=== PATIENT | female | born 1960 | race Caucasian/White ===

== ENCOUNTER 2022-05-06 13:21 | Outpatient (CLI) | payer OTHER, SELFPAY ==
[2022-05-06 13:59] LABS: Cholesterol* 193 mg/dL (90-199); HDL Cholesterol* 50 mg/dL (>=50); LDL Cholesterol Calculated 116 mg/dL (<100); Triglycerides* 135 mg/dL (40-149)
== END 2022-05-06 13:22 | disposition home or self-care (01) ==
PROVIDERS: PCP Physician Assistant Medical; Visit Provider Physician Assistant Medical
DX: Z00.00 Encounter for general adult medical examination without abnormal findings (principal); I10 Essential (primary) hypertension; Z13.6 Encounter for screening for cardiovascular disorders
CPT/HCPCS: 80061

== ENCOUNTER 2022-05-08 10:35 | Outpatient (CLI) | payer SELFPAY | END 2022-05-08 10:36 | disposition home or self-care (01) | LOC: FRMREF 05-30 10:43 | PROVIDERS: PCP Physician Assistant Medical; Visit Provider Physician Assistant Medical | DX: Z00.00 Encounter for general adult medical examination without abnormal findings (principal); E66.9 Obesity, unspecified; I10 Essential (primary) hypertension; Z13.9 Encounter for screening, unspecified | CPT/HCPCS: 87624; 88175 ==

== ENCOUNTER 2022-07-03 14:39 | Outpatient (CLI) | payer OTHER, SELFPAY ==
--- NOTE | 2022-07-03 15:00 | CRLHL7_ITS ---
For Patients: As a result of the Century Cures Act, medical imaging exams and procedure reports are released immediately into your electronic medical record. You may view this report before your referring provider. If you have questions, please contact your health care provider. BILATERAL SCREENING MAMMOGRAM WITH COMPUTER-AIDED DETECTION AND TOMOSYNTHESIS TECHNIQUE: CC and MLO views were obtained. These mammographic images have been obtained using full-field digital technique. These mammographic images were interpreted with the benefit of computer-aided detection. Breast Tomosynthesis was used in this interpretation. COMPARISON FILM: 11/02/20, 05/26/19, 02/11/18. FINDINGS: There are scattered areas of fibroglandular density IMPRESSION: There is no radiographic evidence for malignancy. ASSESSMENT: BI-RADS Category 1: Negative RECOMMENDATION: Routine screening mammogram in 1 year. A lay language report of this examination will be provided to the patient. Maximiliano Hallman M.D. Diagnostic Radiologist [email or web address] ANAIS/Dictated by: Maximiliano Hallman MD @ 07/04/2022 8:12:00 AM (Electronically Signed)
== END 2022-07-03 14:40 | disposition home or self-care (01) ==
LOC: MAMMO 14:40
PROVIDERS: PCP Physician Assistant Medical; Visit Provider Physician Assistant Medical
DX: Z12.31 Encounter for screening mammogram for malignant neoplasm of breast (principal)
CPT/HCPCS: 77063; 77067

== ENCOUNTER 2023-08-14 14:25 | Outpatient (CLI) | payer OTHER, SELFPAY | END 2023-08-14 14:26 | disposition home or self-care (01) | LOC: NFLDREF 08-17 09:35 | PROVIDERS: PCP Physician Assistant Medical; Referring Provider Physician Assistant Medical; Visit Provider Physician Assistant Medical | DX: Z01.818 Encounter for other preprocedural examination (principal); I10 Essential (primary) hypertension; E66.9 Obesity, unspecified; Z13.6 Encounter for screening for cardiovascular disorders; Z13.29 Encounter for screening for other suspected endocrine disorder | CPT/HCPCS: 80053; 80061; 84443 ==

== ENCOUNTER 2024-11-28 08:26 | Outpatient (CLI) | payer OTHER, SELFPAY ==
--- NOTE | 2024-11-28 08:45 | CRLHL7_ITS ---
For Patients: As a result of the Century Cures Act, medical imaging exams and procedure reports are released immediately into your electronic medical record. You may view this report before your referring provider. If you have questions, please contact your health care provider. BILATERAL SCREENING MAMMOGRAM WITH COMPUTER-AIDED DETECTION AND TOMOSYNTHESIS TECHNIQUE: CC and MLO views were obtained. These mammographic images have been obtained using full-field digital technique. These mammographic images were interpreted with the benefit of computer-aided detection. Breast Tomosynthesis was used in this interpretation. COMPARISON FILM: 07/03/22, 11/02/20, 05/26/19. FINDINGS: There are scattered areas of fibroglandular density. IMPRESSION: There is no radiographic evidence for malignancy. ASSESSMENT: BI-RADS Category 1: Negative RECOMMENDATION: Routine screening mammogram in 1 year. A lay language report of this examination will be provided to the patient. Maximiliano Hallman M.D. Diagnostic Radiologist [email or web address] SP/Dictated by: Maximiliano Hallman MD @ 12/05/2024 9:29:00 AM (Electronically Signed)
== END 2024-11-28 08:27 | disposition home or self-care (01) ==
LOC: MAMMO 08:27
PROVIDERS: PCP Physician Assistant Medical; Visit Provider Physician Assistant Medical
DX: Z12.31 Encounter for screening mammogram for malignant neoplasm of breast (principal)
CPT/HCPCS: 77063; 77067

== ENCOUNTER 2024-12-05 07:22 | Outpatient (CLI) | payer MEDICARE, SELFPAY ==
[2024-12-07 18:58] LABS: HPV Source Cervical/Vag; HPV, High Risk by TMA Not Detected
[2024-12-20 14:44] LABS: Pap Test Reviewed by Path Done
== END 2024-12-05 07:23 | disposition home or self-care (01) ==
PROVIDERS: PCP Physician Assistant Medical; Visit Provider Physician Assistant Medical
DX: R87.620 Atypical squamous cells of undetermined significance on cytologic smear of vagina (ASC-US) (principal); I10 Essential (primary) hypertension; E66.9 Obesity, unspecified; Z11.51 Encounter for screening for human papillomavirus (HPV)
CPT/HCPCS: 80053; 80061; 84443; 87624; 87625; 88141; 88142

== ENCOUNTER 2024-12-15 14:30 | Outpatient (CLI) | payer MEDICARE, SELFPAY | END 2024-12-15 14:31 | disposition home or self-care (01) | LOC: RAD 14:31 | PROVIDERS: PCP Physician Assistant Medical; Visit Provider Physician Assistant Medical | DX: Z78.0 Asymptomatic menopausal state (principal) | CPT/HCPCS: 77080 ==

== ENCOUNTER 2025-01-27 08:47 | Outpatient (CLI) | payer MEDICARE, SELFPAY ==
--- NOTE | 2025-01-27 09:15 | CRLHL7_ITS ---
For Patients: As a result of the Century Cures Act, medical imaging exams and procedure reports are released immediately into your electronic medical record. You may view this report before your referring provider. If you have questions, please contact your health care provider. INDICATION: Postmenopausal bleeding COMPARISON: none TECHNIQUE: 2D lenz scale and color Doppler images were acquired of the pelvis using a transabdominal and transvaginal approach. FINDINGS: Sonographic images demonstrate a normal size and smooth outer contour of the uterus. Uterus measures 9.4 cm in length by 7.2 cm in AP diameter by 6.6 cm in transverse dimension. Hyperechoic structure within the posterior mid myometrium measures 2.4 x 1.4 x 1.4 cm. The endometrial lining appears thickened and heterogeneous and measures 27 mm in composite thickness. The ovaries are not visualized. There are no suspicious fluid collections within the cul-de-sac. IMPRESSION: Thickened and heterogeneous endometrium measures up to 2.7 cm. Blood products appear to be present within the endometrial canal. Posterior uterine fibroid is present measuring 2.4 cm. Dictated by Maximiliano Hallman MD @ 01/27/2025 10:20:49 AM (Electronically Signed)
== END 2025-01-27 08:48 | disposition home or self-care (01) ==
LOC: US 08:48
PROVIDERS: PCP Physician Assistant Medical; Visit Provider Physician Assistant Medical
DX: N95.0 Postmenopausal bleeding (principal); D25.9 Leiomyoma of uterus, unspecified; R93.89 Abnormal findings on diagnostic imaging of other specified body structures
CPT/HCPCS: 76830; 76856

== ENCOUNTER 2025-03-07 13:52 | Outpatient (CLI) | payer MEDICARE, SELFPAY | END 2025-03-07 13:53 | disposition home or self-care (01) | LOC: NFLDREF 03-10 10:37 | PROVIDERS: PCP Physician Assistant Medical; Referring Provider Physician Assistant Medical; Visit Provider Physician Assistant Medical | DX: E05.90 Thyrotoxicosis, unspecified without thyrotoxic crisis or storm (principal) | CPT/HCPCS: 84443 ==

== ENCOUNTER 2025-03-13 10:15 | Outpatient (CLI) | payer MEDICARE, SELFPAY ==
--- NOTE | 2025-03-13 11:00 | CRLHL7_ITS ---
For Patients: As a result of the Century Cures Act, medical imaging exams and procedure reports are released immediately into your electronic medical record. You may view this report before your referring provider. If you have questions, please contact your health care provider. INDICATION: Malignant neoplasm of endometrium. TECHNIQUE: CT chest, abdomen and pelvis acquired with 139 cc of Isovue 370 IV contrast. COMPARISON: Pelvic ultrasound 01/27/2025. FINDINGS: Chest: Cardiovascular structures: Heart size is normal. Main pulmonary artery is dilated to 3.1 cm, suggesting underlying pulmonary hypertension. Thoracic aorta is normal in caliber. Mediastinum and moris: No pathologic lymphadenopathy. Lungs: No pneumothorax. Central airways are patent. Lungs are clear. Pleura and pericardium: No effusions. Chest wall and axilla: Unremarkable. Abdomen and Pelvis: Liver: Fatty change. No focal lesion. Spleen: Unremarkable. Pancreas: Unremarkable. Gallbladder and bile ducts: No calcified gallstones or biliary ductal dilatation. Kidneys: No urolithiasis, hydronephrosis or suspicious lesion. Adrenal glands: Unremarkable. GI tract: Colonic diverticulosis without evidence of acute diverticulitis. No obstruction or acute inflammatory change. No free air or free fluid. Vascular structures: Unremarkable. Lymph nodes: No pathologic lymphadenopathy. Pelvic Organs: Thickened and heterogeneous appearance of the endometrium with areas of enhancement consistent with known neoplasm. Adnexal regions and bladder as imaged are unremarkable. Bones: Degenerative changes spine and pelvis. No acute or suspicious abnormality. IMPRESSION: No evidence of metastatic disease in the chest, abdomen or pelvis. Dictated by Steve Gonzales MD @ 03/14/2025 3:30:02 PM Please note that all CT scans at this facility use dose modulation, iterative reconstruction, and/or weight-based dosing when appropriate to reduce radiation dose to as low as reasonably achievable. Dictated by: Steve Gonzales MD @ 03/14/2025 15:30:24 (Electronically Signed)
== END 2025-03-13 10:16 | disposition home or self-care (01) ==
LOC: CT 10:17
PROVIDERS: PCP Physician Assistant Medical; Visit Provider Physician Assistant
DX: C54.1 Malignant neoplasm of endometrium (principal)
CPT/HCPCS: 71260; 74177; Q9967

== ENCOUNTER 2025-06-19 16:07 | Outpatient (CLI) | payer MEDICARE, SELFPAY ==
--- NOTE | 2025-06-19 16:45 | CRLHL7_ITS ---
For Patients: As a result of the Century Cures Act, medical imaging exams and procedure reports are released immediately into your electronic medical record. You may view this report before your referring provider. If you have questions, please contact your health care provider. INDICATION: Left thigh posterior knee pain TECHNIQUE: A compression venous ultrasound exam was performed of the left lower extremity using lenz-scale imaging, color Doppler and spectral Doppler analysis. FINDINGS: Sonographic imaging of the left lower extremity demonstrates Extensive thrombus seen in the common femoral vein. No thrombus in the deep femoral vein or greater saphenous vein. Thrombus seen within the femoral vein, popliteal, posterior tibial vein. Peroneal vein suboptimally seen. Thrombus also seen in the left iliac vein. Normal blood flow in the right iliac vein. IVC suboptimally visualized. 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 IVC is suboptimally seen. Results called to Dr. Nath on 06/19/25 at 5:50pm. Dictated by Gayle Buck MD @ 06/19/2025 5:49:05 PM (Electronically Signed)
== END 2025-06-19 16:08 | disposition home or self-care (01) ==
PROVIDERS: PCP Physician Assistant Medical; Visit Provider Nurse Practitioner Family
DX: C54.1 Malignant neoplasm of endometrium (principal); M79.605 Pain in left leg; K76.0 Fatty (change of) liver, not elsewhere classified
CPT/HCPCS: 93971

== ENCOUNTER 2025-06-19 17:18 | Emergency (ER) | payer MEDICARE, SELFPAY ==
--- OUTSIDE RECORDS SUMMARY | 2025-06-19 17:20 | XMS_ITS | Clinical Summary ---
Author Organization [facility] Address [facility] [place] [address] Care Team Providers Care Longitudinal Float Operator Name Role Phone Seven Bernal Primary Care Provider Unavailabl e Allergies No known active allergies Medications lisinopriL 10 mg tablet Take 10 mg by mouth once daily. Active acetaminophen 325 mg tablet Take 325 mg by mouth every 4 hours if needed for Pain. Max acetaminophen dose: 4000mg in 24 hrs. Active oxyCODONE 5 mg immediate release tabletIndicati ons:Post-op pain Take 1 Tablet (5 mg) by mouth every 4 hours if needed for Pain. 10 Tablet 03/23/2025 10:15 AM CDT Active Encounters Date Type Department Care Team Description 03/23/2025 7:32 AM CDT Anesthesia Event 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 [address] [place] [address] Jana Barnett MD robot-assisted total laparoscopic hysterectomy, bilateral salpingo-oophorecto my, bilateral pelvic sentinel lymph node dissection, infracolic omentectomy, pelvic washings, cystoscopy 03/23/2025 5:08 AM CDT - 03/23/2025 12:50 PM CDT Hospital Encounter 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 Gender Identity Not on file Sexual Orientation Not on file Obstetrics History Last Filed Vital Signs Vital Sign Reading Time Taken Comments Blood Pressure 112/67 03/23/2025 12:00 PM CDT Pulse 66 03/23/2025 12:15 PM CDT Temperature 36.5 C (97.7 F) 03/23/2025 12:15 PM CDT Respiratory Rate 12 03/23/2025 12:15 PM CDT Oxygen Saturation 95% 03/23/2025 12:15 PM CDT Inhaled Oxygen Concentration - - Weight 128.4 kg (283 lb) 03/23/2025 6:16 AM CDT Height 165.1 cm (5' 5) 03/23/2025 6:16 AM CDT Body Mass Index 47.09 03/23/2025 6:16 AM CDT Plan of Treatment Health Maintenance Due Date Last Done Comments Tetanus booster 1970 Depression screening for age 12+ 1971 HIV for age 15-65 1974 BMI (ht and wt on same day) for age 18+ 1977 Hepatitis C screening for age 18-79 1977 Colonoscopy through age 75 2004 Lipids for age 45-75 2004 Mammogram for age 45-75 2004 Pneumococcal series for age 50+ (1 of 1 - PCV) 2009 Zoster (shingles) series for age 50+ (1 of 2) 2009 RSV vaccine for adults or (1 - Risk 60-74 years 1-dose series) 2019 DEXA/DXA scan for age 65+ 2024 Pap test for age 21-65 05/08/2025 2, 05/08/2022, 01/22/2017, Additional history exists COVID-19 vaccine series ( season) 2025 09/14/2021, 01/19/2021, 12/29/2020 Influenza Vaccine (#1) 2025 Hepatitis B series for 19+ Aged Out N o longer eligible based on patient's age to complete this topic Procedures Procedure Name Priority Date/Time Associated Diagnosis Comments PATH TISSUE EXAM Today 03/23/2025 8:38 AM CDT CG HER2 GASTRIC Routine 03/23/2025 8:38 AM CDT CYTOGENETICS MALIGNANT TISSUE Routine 03/23/2025 8:38 AM CDT PATH NON MANAGER DOCUMENT CYTOLOGY Today 03/23/2025 8:29 AM CDT ENDOTRACHEAL TUBE Routine 03/23/2025 8:2 0 AM CDT OR IMAGE CAPTURE Routine 03/23/2025 7:25 AM CDT ROBOTIC ASSISTED SALPINGO-OOPHORECTO MY XI Tier 2: within 30 days 03/23/2025 7:00 AM CDT SEROUS ENDOMETRIAL CANCER ROBOTIC ASSISTED LAPAROSCOPIC TOTAL HYSTERECTOMY XI Tier 2: within 30 days 03/23/2025 7:00 AM CDT SEROUS ENDOMETRIAL CANCER GLUCOSE METER Timed 03/23/2025 6:37 AM CDT TYPE & SCREEN Preop 03/23/2025 6:20 AM CDT SCAN-CARDIAC STRIP 03/23/2025 12 :00 AM CDT HPV HIGH RISK Routine 05/08/2022 10:15 AM CDT from Last 3 Months or Most Recently Relevant to Health Maintenance Results * CG HER2 GASTRIC (03/23/2025 8:38 AM CDT) Tissue (Right Pelvic Lymph Node) 03/23/2025 8:38 AM CDT 03/31/2025 1:38 PM CDT us Jana Barnett MD LABORATORY Fin al Result [facility] [address] [place] [address], [place] * CYTOGENETICS MALIGNANT TISSUE STUDIES (03/23/2025 8:38 AM CDT) RFR Endometrial carcinoma 04/04/2025 3:[address] [facility] TEST & RESULT SUMMARY HER2 FISH Endometrial: See pathology report [id number]. See comments. 04/04/2025 3:[address] [facility] _ 04/04/2025 3:07 PM CDT [facility] [place] N[facility] LABORATORY COMMENTS This record is used as an internal laboratory test designed for workflow purposes only. 04/04/2025 3:07 PM CDT [facility] [place] [facility] NTRAL LABORATORY SOURCE UTERUS WITH CERVIX, OVARIES, AND FALLOPIAN TUBES (Paraffin Slides C13 2 uns 1 H&E) [id number] 04/04/2025 3:07 PM CDT [facility] Tissue (Right Pelvic Lymph Node) 03/23/2025 8:38 AM CDT 03/31/2025 1:38 PM CDT us Jana Barnett MD LABORATORY Fin al Result [facility] [address] [place] [address], [place] * PATH TISSUE EXAM (03/23/2025 8:38 AM CDT) Case Report Pathology Report Case: [id number] Authorizing Provider: Jana Barnett Collected: 03/23/2025 0838 MD Mark Ordering Location: [facility] Received: 03/23/[address] [place] [address] Pathologist: Hilda Edwards MD Specimens: A) - Right Pelvic Lymph Node, right pelvic sentinel lymph node B) - Left Pelvic Lymph Node, left pelvic sentinel lymph node C) - Uterus, uterus, cervix, bilateral fallopian tubes, bilateral ovaries D) - Omentum 5:25 PM CDT [facility] Amendment 03/31/2025 - Amendmen t issued to incorporate ancillary HER2 IHC studies. 04/04/2025 - Amendment issued to incorporate ancillary HER2 FISH studies. 5:25 PM CDT [facility] C[facility] LAB[facility] Final Diagnosis A) SENTINEL LYMPH NODE, RIGHT PELVIC, BIOPSY: 1. One lymph node, negative for malignancy (0/1) 2. Cytokeratin AE1/AE3 immunostains are negative for tumor cells B) SENTINEL LYMPH NODE, LEFT PELVIC, BIOPSY: 1. One lymph node, negative for malignancy (0/1) 2. Cytokeratin AE1/AE3 immunostain is negative for tumor cells C) UTERUS WITH CERVIX, OVARIES, AND FALLOPIAN TUBES, TOTAL HYSTERECTOMY WITH BILATERAL SALPINGO-OOPHORECTOMY: 1. Endometrial carcinoma: a. 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 Molecular classification: p53 abnormal c. Maximum tumor size: Approximately 2-3 cm d. Myometrial invasion: Absent e. Lower uterine segment involvement: Absent f. Cervical involvement: Absent g. Uterine serosal involvement: Absent h. Angiolymphatic invasion: Absent i. Margins: Negative 2. Right and left ovaries and fallopian tubes are negative for carcinoma 3. Additional uterine findings: a. Cervical polyp and an endometrial polyp b. Areas of squamous atypia (possibly reactive; negative for high-grade squamous intraepithelial lesion/MACARIO-3) c. Uterine weight: 219 grams 4. See synoptic section below for complete staging details D) OMENTUM, OMENTECTOMY: 1. Adipose tissue 2. Negative for malignancy 5:25 PM CDT [facility] Amendment electronically signed by Hilda Edwards MD on 04/04/2025 at 1725 CDT Amendment electronically signed by Hilda Edwards MD on 03/31/2025 at 1339 CDT at 1256 CDT Comment C) At the time of hysterectomy, a degenerating leiomyoma protrudes into the uterine cavity along the posterior wall. The tubing component of this leiomyoma contains a mass of high-grade serous carcinoma which is approximately 2 to 3 cm in size. In the biopsy ([id number]), the possibility of a small component of clear cell carcinoma was raised; however, this was a focal change and no more of this population remains in the hysterectomy. 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 The molecular classification indicated in this report is based on prior testing, which included DNA mismatch repair enzyme and p53 immunohistochemistry and POLE molecular testing. See prior report [id number] for full details. HER2 COMMENT There are currently no guidelines that have been developed for the reporting of the results of HER2 testing on endometrial cancer. In the absence of such data, guidelines for HER2 positivity are based on modified CAP/ASCO 2007 criteria as proposed at [facility], [facility], 2020. While the results are negative, documentation of specimen fixation in accordance with ASCO/CAP guidelines cannot be verified. Thus, negative results should be interpreted with caution. REFERENCES: Jessi Vera. HER2 Testing in Endometrial Serous Carcinoma: Time for Standardized Pathology Practice to Meet the Clinical Demand. Arch Pathol Lab Med. 2020 1;145(6):687-691. doi: 10.5858/arpa.0645-4995- RA. PMID: [id number]. 5 5:25 PM CDT [facility] Clinical Information History of postmenopausal bleeding with biopsy showing a serous predominant carcinoma ([id number]) 5 5:25 PM CDT [facility] Gross Description A) Received fresh labeled with the patient's name and left pelvic sentinel lymph node, is a 3.4 x 2.6 x 1.2 cm aggregate of focally cauterized fibrofatty tissue. Upon dissection, no definitive enlarged lymph nodes are identified. Specimen is entirely submitted in 2 cassettes. B) Received fresh labeled with the patient's name and right pelvic sentinel lymph node, is a 2.1 x 1.5 x 0.8 cm focally cauterized fibrofatty tissue. Upon dissection, there is an ill-defined 1 x 0.7 cm probable lymph node with focal injected dye. The lymph node is bisected and the entire specimen submitted in 1 cassette. C) Received fresh labeled with the patient's name and uterus, cervix, bilateral fallopian tubes, bilateral ovaries, is a 219 g, 11.5 x 6.7 x 6.3 cm uterus and cervix. Uterine serosa is red-estrada smooth and without adhesions or suspicious nodules. The cervix is 3.7 cm long, ectocervix is 3.4 cm diameter with a patent 0.5 cm diameter external cervical os. The anterior paracervical soft tissue margin is inked blue and the posterior paracervical soft tissue margin is inked black. Ectocervical mucosa is smooth red-estrada and unremarkable. There is a distinct cervical squamocolumnar junction. There is a pedunculated 1.3 x 0.7 x 0.5 cm thin, soft endocervical polyp confined to the mucosa. Protruding into the endometrial cavity is a 5.5 x 3.5 x 2.7 cm polypoid and fungating red-estrada, lenz-brown endometrial tumor involving the posterior uterine wall, with necrotic-appearing, estrada-white fibrous, vaguely whorled, edematous cut surfaces, possibly representing a submucosal degenerating leiomyoma. The overlying mucosa is thickened and ragged. If this represents invasive tumor, there is myometrial invasion to a depth of 1.7 cm in an area where the myometrium is 3.7 cm thick. This is 1.5 cm from the PETRA and 5 cm from the ectocervical margin. Also, there is a separate bilobed fleshy polypoid 2.6 x 1.5 x 1 cm endometrial mass with soft edematous pale-estrada cut surfaces, involving the anterior wall, without evidence of myometrial invasion. This is 2.5 cm from the PETRA. The attached right adnexa includes an intact estrada ovary (2.3 x 1.9 x 1.7 cm) and a 6.5 x 0.8 cm fimbriated fallopian tube. Fallopian tube serosa is smooth purple-estrada and without suspicious nodules, adhesions or tumor implants. On cut surface, the ovarian lenz-estrada parenchyma includes a 0.6 x 0.5 cm corpus albicans and no suspicious nodules. The fallopian tube pinpoint to stellate lumen is lined by unremarkable soft estrada-pink mucosa without lesions. The attached left adnexa includes an intact estrada ovary (2.4 x 1.7 x 1.6 cm) and a 6.8 x 1.1 cm fimbriated fallopian tube. Fallopian tube serosa is smooth maroon-estrada and without suspicious nodules, adhesions or tumor implants. On cut surface, the ovarian red-estrada parenchyma is without discrete lesions. The fallopian tube pinpoint to stellate lumen is lined by unremarkable soft red-estrada mucosa without discrete lesions. Photographs of the specimen are uploaded to the case. Wet Finisher Wool sections are submitted in 28 cassettes: 1. Endocervical polyp, entirely submitted 2. Anterior cervix 3. Posterior cervix 4-5. Anterior endocervix/PETRA 6. Posterior endocervix/PETRA 7-9. 5.5 cm polypoid/fungating tumor, posterior wall, full-thickness sections, sequential inner half to outer half 10-13. 5.5 cm polypoid/fungating tumor, posterior wall, exophytic component 14. 2.6 cm fleshy endometrial polyp, anterior wall, full-thickness 15-16. 2.6 cm fleshy endometrial polyp, remaining 17. Right ovary 18-22. Entire right fimbriated fallopian tube, sequential 23. Left ovary 24-28. Entire left fimbriated fallopian tube, sequential D) Received fresh labeled with the patient's name and omentum, is a 26 x 4.5 x 1.7 cm omentectomy specimen. Upon dissection, and serial cross sectioning, there is finely lobulated soft yellow-pink adipose tissue. No discrete nodules or suspicious infiltrates are identified. Multiple telecommunications sales representative sections are submitted in 8 cassettes. Time and date in formalin: 913 on 03/23/2025 LDW 03/23/2025 5:25 PM [facility] Microscopic Description The final diagnosis is based on microscopic examination of appropriate sections of all specimens. A-B) Per protocol for histologically negative sentinel lymph node evaluation, cytokeratin AE1/AE3 immunostains were performed on blocks A1 and B1. Both cytokeratin AE1/AE3 immunostains are negative. On part c, a P53 stain was performed to characterize the amount of neoplasm (p53 positive) involving certain groups of glands. 5:25 PM [facility] CENTRAL LABORATORY Cytogenetics Summary MATERIALS AND METHODS, AND REFERENCE RANGES: - Adequate number of tumor cells present on re-cut H&E stain from block C13. - 25 invasive tumor cells are scored for HER2 by two technologists and verified by a pathologist. Internal and external controls are within normal limits. - Cold ischemia time cannot be documented. Formalin fixation was not documented. TESTING INFORMATION FOR HER2 GENE AMPLIFICATION BY FLUORESCENCE IN-SITU HYBRIDIZATION (FISH): HER2 analysis by FISH is performed on tissue fixed in 10% neutral buffered formalin. Gene amplification is detected with the commercial PathV[employer]ion dual color HER2/CEP17 DNA Probe Kit (PathVysion Kit) from [employer] using a multiplex probe stain procedure. Guidelines for HER2 over-expression via FISH use modified CAP/ASCO 2007 guidelines as proposed by [facility], 2020. (endometrial) - HER2 amplified: HER2/CEP17 Ratio = 2.0 or greater, OR HER2 signals/cell = 6 or greater - HER2 negative: HER2/CEP17 Ratio <2.0 and <6 HER2 signals/cell DISCLAIMER: Per ASCO/CAP guidelines, these test results are valid for non-decalcified paraffin embedded specimens fixed in 10% neutral buffered formalin between 6 and 72 hours. This test was developed and its performance characteristics determined by [email or web address]. It has not been cleared or approved by the US Food and Drug Administration. The FDA does not require this test to go through premarket FDA review. This test is used for clinical purposes. It should not be regarded as investigational or for research. This laboratory is certified under the Clinical Laboratory Improvement Amendments (CLIA) as qualified to perform high complexity clinical laboratory testing. REFERENCES: Russell Pantoja., Ene Echeverria., Thai Adam., et al., 2018. 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 J. Clin. Oncol. 36, 2780-5042. Asya Bowen. December,, HER2 Immunostaining and FISH in Endometrial Serous Carcinoma. [facility] [place]. 5:25 PM CDT PST [facility]- CENTRAL LABORATORY SYNOPTIC REPORTING ENDOMETRIUM ENDOMETRIUM - All Specimens AJ 8 - Protocol posted: 09/21/2024 SPECIMEN Procedure: Total hysterectomy Procedure: Bilateral salpingo-oophorectomy Procedure: Peritoneal / pelvic washing Specimen Integrity: Intact TUMOR Tumor Size: Greatest microscopic dimension (Centimeters): 2-3 cm Histologic Type: Serous carcinoma Histologic Grade: High-grade Molecular Type: p53 Immunohistochemistry: Abnormal (mutated) expression : Overexpression (strong, diffuse nuclear expression) TP53 Mutation Testing: Not performed ProMisE Classification: d01-otvlzefp carcinoma Myometrial Invasion: Not identified Uterine Serosal Involvement: Not identified Lower Uterine Segment Involvement: Not identified Cervical Involvement: Not identified Other Tissue / Organ Involvement: Not identified (other tissues / organs submitted and not involved) Peritoneal / Pelvic Washings / Ascitic Fluid: Atypical: The specimen is paucicellular, with rare atypical cell groups, possibly representing degenerative atypia. A small population of neoplastic cells cannot be entirely excluded. Lymphatic and / or Vascular Invasion: Not identified REGIONAL LYMPH NODES Regional Lymph Node Status: : All regional lymph nodes negative for tumor cells Lymph Nodes Examined: Total Number of Pelvic Nodes Examined: 2 Number of Pelvic [place] Nodes Examined: 2 Total Number of Para-aortic Nodes Examined: 0 pTNM CLASSIFICATION (AJCC 8th Edition) Reporting of pT, pN, and (when applicable) pM categories is based on information available to the pathologist at the time the report is issued. As per the AJCC (Chapter 1, 8th Ed.) it is the managing physician's responsibility to establish the final pathologic stage based upon all pertinent information, including but potentially not limited to this pathology report. pT Category: pT1a pN Category: pN0 N Suffix: (sn) FIGO STAGE FIGO Stage (2022 Staging for Cancer of the Endometrium): IC ADDITIONAL FINDINGS Additional Findings: None identified Comment(s): Tumor block: C13 Endometrium Biomarker Reporting Template ENDOMETRIUM: BIOMARKER REPORTING TEMPLATE - C Protocol posted: 06/21/2019 Test(s) Performed: HER2 by Immunohistochemistry: Equivocal (Score 2+) Percentage of Cells with Uniform Intense Complete Membrane Stainin % Test(s) Performed: HER2 by in situ Hybridization: Negative (not amplified) Number of Invasive Cancer Cells Counted: 25 Method: Dual-probe assay HER2 : CEP17 Ratio: 1.14 Average Number of HER2 Signals per Cell: 2.56 Average Number of CEP17 Signals per Cell: 2.24 Heterogeneous Signals: Not identified METHODS HER2 by Immunohistochemistry Method: Laboratory-developed test HER2 Primary Antibody: 4B5 HER2 by in situ Hybridization Method: Laboratory-developed test Comment(s) Comment(s): The HER2 FISH test was developed and its performance characteristics determined by the [facility]ogenetics Laboratory. It has not been cleared or approved by the U.S. Food and Drug Administration. The FDA does not require these tests to go through premarket FDA review. These tests are used for clinical purposes. They should not be regarded as investigational or for research. This laboratory is certified under CLIA as qualified to perform high complexity clinical laboratory testing 5:[address] [facility] Additional Information Interpreted at [facility] - [address] [place] [address] [address], [place] [address] Immunohistochemistry controls were reviewed and approved as appropriate by the pathologist during this examination. 5:[address] [facility] Tissue (Right Pelvic Lymph Node) 03/23/2025 8:38 AM CDT 03/23/2025 9:05 AM CDT Tissue specimen (specimen) (Left Pelvic Lymph Node) 03/23/2025 8:49 AM CDT 03/23/2025 9:05 AM CDT Tissue specimen (specimen) SPECIMEN FROM UTERUS / Unknown 03/23/2025 8:57 AM CDT 03/23/2025 9:11 AM CDT Tissue specimen (specimen) SPECIMEN FROM OMENTUM / Unknown 03/23/2025 9:09 AM CDT 03/23/2025 9:20 AM CDT us Jana Barnett MD PATHOLOGY/CYTOLOGY Edited Result - Final [facility] [address] [place] [address], [place] * PATH NON MANAGER DOCUMENT CYTOLOGY (03/23/2025 8:29 AM CDT) Case Report Medical Cytology Report Case: [id number] Authorizing Provider: Jana Barnett Collected: 03/23/2025 0829 MD Mark Ordering Location: [facility] Received: 03/23/2025 0859 Hospital Pathologist: Nancy Fernando MD Specimen: Peritoneal Washing 03/24/2025 9:07 AM CDT [facility] Amendment Report amended to denote degenerative atypia, with evaluation limited by paucicellularity . 03/24/2025 9:07 AM CDT [facility] Final Diagnosis PERITONEAL WASHINGS, CYTOLOGIC MATERIAL: Rare atypical cell groups present, see comment 03/24/2025 9:07 AM CDT [facility] Amendment electronically signed by Nancy Fernando MD on 03/24/2025 at 0907 CDT at 0904 CDT Comment The specimen is paucicellular, with rare atypical cell groups, possibly representing degenerative atypia. A small population of neoplastic cells cannot be entirely excluded. Please see concurrent surgical resection ([id number]). 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 Specimen adequacy: Adequate for interpretation. The microscopic appearance substantiates the diagnosis. 03/24/2025 9:07 AM CDT [facility] Additional Information Cytology is screened at [facility], Central Laboratory - [address] [address] and [facility] - [address] [place] [address] and [facility] - [address] [place] [address] Interpreted at [facility], Central Laboratory - [address], [place] [address] 03/24/2025 9:07 AM CDT [facility] Washing (Peritoneal Washing) 03/23/2025 8:29 AM CDT 03/23/2025 8:59 AM CDT Jana Barnett MD PATHOLOGY/CYTOLOGY Edited Result - Final Performing Organization Address [facility] Co de Phone Number [facility] [address] [place] [id number], [place] * ETT (03/23/2025 8:20 AM CDT) Narrative Carri Grande CRNA Student - 03/23/2025 8:20 AM CDT Carri Grande CRNA Student 03/23/2025 8:21 AM Procedure: ETT Patient location during procedure: OR ETT Properties Mask Ventilation: easy and oral airway Final Technique: video laryngoscopy Type: straight Location: oral Cuffed: yes Tube Size: 7.0 mm Stylet: yes Laryngoscope Blade: Glidescope Blade Size: 3 Cormack-Lehane Grade View: 1 Insertion Attempts: 1 Placement Verification: auscultation Assessment: pharynx clear, atraumatic and dentition unchanged Secured at: 21 Measured From: teeth Difficulty: 0 (not difficult) Notes: patient ramped Edgar [place] DO ANESTHESIA PX NOTE OR DERABLES Final Result * (ABNORMAL) GLUCOSE METER (03/23/2025 6:37 AM CDT) GLUCOSE METER 106(H) 65 - 100 mg/dL 03/23/2025 6:43 AM CDT [facility] Blood BLOOD SPECIMEN / Unknown 03/23/2025 6:37 AM CDT 03/23/2025 6:43 AM CDT Jana Barnett MD CHEMISTRY Fin al Result Performing Organization Address City/[facility]/ZIP Co de Phone Number [facility] [address] [place] [id number], [place] * Type & Screen (03/23/2025 6:20 AM CDT) Pathologist [facility] ABORH A Rh Negative 03/23/2025 7:33 AM CDT [facility] ANTIBODY SCREEN Negative Negative 03/23/2025 7:33 AM CDT [facility] SPECIMEN EXPIRATION DATE/TIME 03/26/25 23:59 03/23/2025 7:[address] [facility] Blood BLOOD SPECIMEN / Unknown Venipuncture / Unknown 03/23/2025 6:20 AM CDT 03/23/2025 6:43 AM CDT Christine YA BLOOD BANK Final Res ult [facility] [address] [place] [address], [place] [phone] * SCAN-CARDIAC STRIP (03/23/2025 12:00 AM CDT) Narrative 03/23/2025 12:00 AM CDT Ordered by an unspecified provider. Other Clinical Staff OTHER Final Resul t * HPV HIGH RISK (05/08/2022 10:15 AM CDT) TYPE 16 Negative Negative 05/12/2022 2:06 PM CDT [facility] TYPE 18 Negative Negative 05/12/2022 2:06 PM CDT [facility] OTHER HIGH RISK TYPES Negative Negative 05/12/2022 2:06 PM CDT [facility] Other (Cervical) 05/08/2022 10:15 AM CDT 05/09/2022 8:45 AM CDT Narrative [facility] - 05/12/2022 2:06 PM CDT HPV types 16, 18, 31, 33, 35, 39, 45, 51, 52, 56, 58, 59, 66 and 68 DNA were undetectable or below the pre-set threshold. Methodology: Dante Linda 4800 HPV Test us Seven Bernal PA-C MICROBIOLOGY Final Result [facility] [address] [place] [address], [place] from Last 3 Months or Most Recently Relevant to Health Maintenance Insurance [facility] MEDICARE ADVANTAGE MR MEDICARE PART A HB ONLY Advance Directives * Full Code (Latest Code Status on File) Date Activated Date Inactivated Comments 03/23/2025 5:55 AM 03/23/2025 2:50 PM Question Answer Comments Code Status Discussion: Unable to Assess Preferences, Provider to review later Care Teams Longitudinal Float Operator Relationship Specialty Start Date End Date Seven Bernal PA PCP - General Physician [employer] Supervisor 03/22/25
--- OUTSIDE RECORDS SUMMARY | 2025-06-19 17:21 | XMS_ITS ---
Author Name Interface, [id number] lity Address [address] [facility] [address] [place] [address] [facility] On[facility] Address [address] [facility] [address] [place] [address] Allergies and Adverse Reactions Medication/Group Name Reaction Severity Date No known allergies Plan Date Type Value 06/23/2025 APPOINTMENT TREATMENT 5 HR 06/23/2025 APPOINTMENT OV 30 MIN 06/23/2025 APPOINTMENT LAB 15 MIN 06/02/2025 APPOINTMENT TREATMENT 5 HR 06/02/2025 APPOINTMENT LAB 15 MIN 06/02/2025 APPOINTMENT OV 30 MIN 06/02/2025 LABORDER CMP 06/02/2025 LABORDER iSTAT creatinine panel 06/02/2025 LABORDER CA 125 panel 06/02/2025 LABORDER CBC w/ auto diff 06/19/2025 LABORDER Venous doppler u ltrasound of lower extremity, LT 06/23/2025 LABORDER CA 125 panel 06/23/2025 LABORDER iSTAT creatinine panel 06/23/2025 LABORDER CBC w/ auto diff 06/23/2025 LABORDER CMP Reason for Visit OV 30 MIN Encounters Date Name 06/02/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 Diagnostic Results Date Type Test Units Lower Limit Upper Limit Result Flag Comments Status Ordered By Specimen Source Lab Address 06/02 iSTAT creat inine panel Creat inine , iSTAT mg/dl 0.6 1.3 1.0 FINAL Ngoc Trejo [facility] , [address] [facility] 210 [facility] [id number] 06/02 iSTAT creat inine panel GFR estim ate ml/min /1.73m ^2 62.2 GFR is calculate d using the CKD-EPI equation. FINAL Ngoc Trejo [facility] , [address] [place] [address] 210 [facility] [id number] 0 06/02 CBC w/ auto diff WBC K/uL 3.0 8.9 9.2 High FINAL Ngoc Maya [place] [facility] [place] [facility] , [address] [place] [address] 210 [facility] [id number] 0 06/02 CBC w/ auto diff HGB g/dL 11.3 15.2 12.1 FINAL Ngocallegra Trejo [place] [facility] [place] [facility] , [address] [place] [address] 210 [facility] [id number] 0 06/02 CBC w/ auto diff PLT K/uL 113.0 364.0 283 FINAL Ngoc Maya [place] [facility] [place] [facility] , [address] [place] [address] 210 [facility] [id number] 0 06/02 CBC w/ auto diff Luis Angel # (ANC) K/uL 1.6 6.6 6.3 FINAL Ngocallegra Trejo [place] [facility] [place] [facility] , [address] [place] [address] 210 [facility] [id number] 0 06/02 CBC w/ auto diff Luis Angel % % 43.0 74.0 68.4 FINAL Ngocallegra Trejo [place] [facility] [place] [facility] , [address] [place] [address] 210 [facility] [id number] 0 06/02 CBC w/ auto diff IG % % 0.0 0.5 1.1 High FINAL Ngocallegra Trejo [place] [facility] [place] [facility] , [address] [place] [address] 210 [facility] [id number] 0 06/02 CBC w/ auto diff IG # K/uL 0.0 0.03 0.10 High FINAL Ngoc Venuel [place] [facility] [place] [facility] , [address] [place] [address] 210 [facility] [id number] 0 06/02 CBC w/ auto diff LY % % 14.0 41.0 22.8 FINAL Ngoc Maya [place] [facility] [place] [facility] , [address] [place] [address] 210 [facility] [id number] 0 06/02 CBC w/ auto diff MO % % 6.0 15.0 6.1 FINAL Ngoc Trejo [place] [facility] [place] [facility] , [address] [facility] 210 [place] [id number] 0 06/02 CBC w/ auto diff EO % % 0.0 7.0 1.1 FINAL Ngoc Trejo [place] [facility] [place] [facility] , [address] [place] [address] 210 [facility] [id number] 0 06/02 CBC w/ auto diff BA % % 0.0 2.0 0.5 FINAL Ngoc Trejo [place] [facility] [place] [facility] , [address] [place] [address] 210 [facility] [id number] 0 06/02 CBC w/ auto diff LY # K/uL 0.4 3.6 2.1 FINAL Ngoc Trejo [place] [facility] [place] [facility] , [address] [place] [address] 210 [facility] [id number] 0 06/02 CBC w/ auto diff MO # K/uL 0.2 1.3 0.6 FINAL Ngoc Trejo [place] [facility] [place] [facility] , [address] [place] [address] 210 [facility] [id number] 0 06/02 CBC w/ auto diff EO # K/uL 0.0 0.6 0.1 FINAL Ngoc Trejo [place] [facility] [place] [facility] , [address] [place] [address] 210 [place] [id number] 0 06/02 CBC w/ auto diff BA # K/uL 0.0 0.2 0.1 FINAL Ngoc Trejo [place] [facility] [place] [facility] , [address] [place] [address] 210 [facility] [id number] 0 06/02 CBC w/ auto diff NRBC % #/100W BC 0.0 0.2 0.0 FINAL Ngoc Trejo [place] [facility] [place] [facility] , [address] [place] [address] 210 [facility] [id number] 0 06/02 CBC w/ auto diff RBC M/uL 3.9 5.1 3.99 FINAL Ngoc Trejo [facility] , [address] [place] [address] 210 [place] [id number] 0 06/02 CBC w/ auto diff HCT % 35.0 48.0 35.9 FINAL Ngocallegra Trejo [facility] , [address] [place] [address] 210 [place] [id number] 0 06/02 CBC w/ auto diff MCV fL 80.0 104.0 90.0 FINAL Ngocallegra Trejo [facility] , [address] [place] [address] 210 [place] [id number] 0 06/02 CBC w/ auto diff MCH pg 26.0 35.0 30.3 FINAL Ngoc [facility] , [address] [place] [address] 210 [place] [id number] 0 06/02 CBC w/ auto diff MCHC g/dL 30.0 35.0 33.7 FINAL Ngocallegra Trejo [facility] , [address] [place] [address] 210 [place] [id number] 0 06/02 CBC w/ auto diff MPV fL 9.5 13.4 9.3 Low FINAL Ngoc [facility] , [address] [place] [address] 210 [place] [id number] 0 06/02 CBC w/ auto diff RDW % 11.4 16.1 14.60 FINAL Ngoc [facility] , [address] [place] [address] 210 [place] [id number] 0 06/02 CA 125 panel CA 125 U/ML 0.0 35.0 8.30 Test performed at [facility] on a [employer] Immunoass ay Analyzer that uses an immunomet thai immunoass ay technique . Patient testing should not be performed using multiple cristhian miranda due to analytica l variation seen between test cristhian miranda. FINAL Ngoc Czel * [facility] , [address] [facility] [id number] 06/02 CMP Album in g/dL 3.5 5.0 4.1 FINAL Ngoc Czel * [facility] , [address] [facility] [id number] 06/02 CMP Alkal ine phosp hatas e U/L 36.0 125.0 102 FINAL Ngoc Czel * [facility] , [address] [facility] [id number] 0 06/02 CMP ALT/S GPT U/L 0.0 34.0 25 FINAL Ngoc Czel * [facility] , [address] [facility] [id number] 06/02 CMP AST/S GOT U/L 14.0 36.0 31 FINAL Ngoc Czel * [facility] , [address] [facility] [id number] 0 06/02 CMP BUN mg/dL 7.0 17.0 24.0 High FINAL Ngoc Czel * [facility] , [address] [facility] [id number] 0 06/02 CMP Calci um mg/dL 8.4 10.2 9.5 FINAL Ngoc Czel * [facility] , [address] [facility] [id number] 06/02 CMP Chlor dorie mmol/L 96.0 107.0 108 High FINAL Ngoc Czel * [facility] , [address] [facility] [id number] 0 06/02 CMP CO2 mmol/L 22.0 30.0 25 The expected total allowable error for CO2 is 5.6%. We have seen up to 10% differenc e in values if reported at the end of the 96 hour stability window. Please consider the clinical significa nce of a 2.0-2.5 mmol/L lower reported CO2 value if reported at the end of the 96 hour stability window. FINAL Ngoc Maya * [facility] , [address] [facility] [address] [facility] [id number] 0 06/02 CMP Creat inine mg/dL 0.66 1.25 1.00 FINAL Ngoc [place] * [facility] , [facility] [address] [id number] 0 06/02 CMP GFR estim ate ml/min /1.73m ^2 62.2 GFR is calculate d using the CKD-EPI equation. FINAL Ngoc Trejo * [facility] , [address] [facility] [address] [id number] 0 06/02 CMP Gluco se mg/dL 74.0 100.0 111 High FINAL Ngoc Czel * [facility] , [facility] [address] [id number] 0 06/02 CMP Potas sium mmol/L 3.5 5.1 4.7 FINAL Ngoc Venuel * [facility] , [address] [facility] [address] [id number] 0 06/02 CMP Sodiu m mmol/L 137.0 145.0 140 FINAL Ngoc Czel * [facility] , [address] [facility] [address] [id number] 0 06/02 CMP Bilir ubin, total mg/dL 0.2 1.3 <0.1 Low FINAL Ngoc Czel * [facility] , [address] [facility] [address] [id number] 0 06/02 CMP Total prote in g/dL 6.3 8.2 7.6 FINAL Ngoc Trejo * [facility] , [address] [facility] [address] [facility] [id number] 0 Medications Date Name Route Dose Frequency Instructions Start Date End Date Status Fill Status Indication 04/07 Amlodi pine Oral Take once daily active 03/03 Acetam inophe n Oral prn active 05/02 Lorata dine Oral prn active 03/31 carbop latin 10 MG/ML Inject able Soluti on intrave nously 835.0 mg once Mix in D5W or NS.Carboplatin is an irritant. 2024 active Primary serous adenocarcino ma of endometrium 03/31 dexame thason e sodium phosph ate intrave nously 20.0 mg once Administer 30-60 minutes prior to paclitaxel. 2024 active Primary serous adenocarcino ma of endometrium 03/31 Solu-C ortef intrave nously 100.0 mg Re-initiate treatment only upon physician approval. 2024 active Primary serous adenocarcino ma of endometrium 03/31 paclit roxanne 6 MG/ML Inject able Soluti on intrave nously 360.0 mg once Dilute in 250-500 mL NS. Final product concentration must be 0.3-1.2 mg/mL. Administer using [employer]XO[employer]-bex[employer] ining equipment and through an in-line 0.22 micron filter. Paclitaxel is a vascular irritant. 2024 active Primary serous adenocarcino ma of endometrium 03/31 Palono setron IV intrave nously 0.25 mg once 2024 active Primary serous adenocarcino ma of endometrium 03/31 methyl predni solone 2000 MG Inject ion intrave nously 125.0 mg Re-initiate treatment only upon physician approval. 2024 active Primary serous adenocarcino ma of endometrium 03/31 diphen hydram ine hydroc hlorid e 0.5 MG/ML Inject able Soluti on intrave nously 25.0 mg once Administer 30-60 minutes prior to paclitaxel. 2024 active Primary serous adenocarcino ma of endometrium 03/31 2 ML famoti dine 10 MG/ML Inject ion intrave nously 20.0 mg once Administer 30-60 minutes prior to paclitaxel. 2024 active Primary serous adenocarcino ma of endometrium 03/31 famoti dine 10 MG/ML Inject able Soluti on intrave nously 20.0 mg Re-initiate treatment only upon physician approval. 2024 active Primary serous adenocarcino ma of endometrium 03/31 diphen hydram ine hydroc hlorid e 0.5 MG/ML Inject able Soluti on intrave nously 50.0 mg Re-initiate treatment only upon physician approval. 2024 active Primary serous adenocarcino ma of endometrium 04/03 18 ML aprepi tant 7.2 MG/ML Inject ion intrave nously 130.0 mg once Administer 30 minutes prior to chemotherapy. Do NOT dilute. Flush with NS before and after administration . 2024 active Primary serous adenocarcino ma of endometrium 03/31 1 ML epinep hrine 1 MG/ML Inject ion intramu scularl y 0.3 mg once Re-initiate treatment only upon physician approval. 2024 active Primary serous adenocarcino ma of endometrium 03/31 Palono setron IV intrave nously 0.25 mg once 2024 active Primary serous adenocarcino ma of endometrium 03/31 famoti dine 10 MG/ML Inject able Soluti on intrave nously 20.0 mg Re-initiate treatment only upon physician approval. 2024 active Primary serous adenocarcino ma of endometrium 03/31 diphen hydram ine hydroc hlorid e 0.5 MG/ML Inject able Soluti on intrave nously 25.0 mg once Administer 30-60 minutes prior to paclitaxel. 2024 active Primary serous adenocarcino ma of endometrium 03/31 paclit roxanne 6 MG/ML Inject able Soluti on intrave nously 360.0 mg once Dilute in 250-500 mL NS. Final product concentration must be 0.3-1.2 mg/mL. Administer using [employer]crb[employer] ining equipment and through an in-line 0.22 micron filter. Paclitaxel is a vascular irritant. 2024 active Primary serous adenocarcino ma of endometrium 03/31 methyl predni solone 2000 MG Inject ion intrave nously 125.0 mg Re-initiate treatment only upon physician approval. 2024 active Primary serous adenocarcino ma of endometrium 03/31 1 ML epinep hrine 1 MG/ML Inject ion intramu scularl y 0.3 mg once Re-initiate treatment only upon physician approval. 2024 active Primary serous adenocarcino ma of endometrium 04/03 18 ML aprepi tant 7.2 MG/ML Inject ion intrave nously 130.0 mg once Administer 30 minutes prior to chemotherapy. Do NOT dilute. Flush with NS before and after administration . 2024 active Primary serous adenocarcino ma of endometrium 03/31 carbop latin 10 MG/ML Inject able Soluti on intrave nously 835.0 mg once Mix in D5W or NS.Carboplatin is an irritant. 2024 active Primary serous adenocarcino ma of endometrium 03/31 Solu-C ortef intrave nously 100.0 mg Re-initiate treatment only upon physician approval. 2024 active Primary serous adenocarcino ma of endometrium 03/31 diphen hydram ine hydroc hlorid e 0.5 MG/ML Inject able Soluti on intrave nously 50.0 mg Re-initiate treatment only upon physician approval. 2024 active Primary serous adenocarcino ma of endometrium 03/31 dexame thason e sodium phosph ate intrave nously 20.0 mg once Administer 30-60 minutes prior to paclitaxel. 2024 active Primary serous adenocarcino ma of endometrium 03/31 2 ML famoti dine 10 MG/ML Inject ion intrave nously 20.0 mg once Administer 30-60 minutes prior to paclitaxel. 2024 active Primary serous adenocarcino ma of endometrium 04/03 18 ML aprepi tant 7.2 MG/ML Inject ion intrave nously 130.0 mg once Administer 30 minutes prior to chemotherapy. Do NOT dilute. Flush with NS before and after administration . 2024 active Primary serous adenocarcino ma of endometrium 03/31 2 ML famoti dine 10 MG/ML Inject ion intrave nously 20.0 mg once Administer 30-60 minutes prior to paclitaxel. 2024 active Primary serous adenocarcino ma of endometrium 03/31 diphen hydram ine hydroc hlorid e 0.5 MG/ML Inject able Soluti on intrave nously 50.0 mg Re-initiate treatment only upon physician approval. 2024 active Primary serous adenocarcino ma of endometrium 03/31 methyl predni solone 2000 MG Inject ion intrave nously 125.0 mg Re-initiate treatment only upon physician approval. 2024 active Primary serous adenocarcino ma of endometrium 03/31 paclit roxanne 6 MG/ML Inject able Soluti on intrave nously 360.0 mg once Dilute in 250-500 mL NS. Final product concentration must be 0.3-1.2 mg/mL. Administer using [employer]-fwuqu ining equipment and through an in-line 0.22 micron filter. Paclitaxel is a vascular irritant. 2024 active Primary serous adenocarcino ma of endometrium 03/31 famoti dine 10 MG/ML Inject able Soluti on intrave nously 20.0 mg Re-initiate treatment only upon physician approval. 2024 active Primary serous adenocarcino ma of endometrium 03/31 dexame thason e sodium phosph ate intrave nously 20.0 mg once Administer 30-60 minutes prior to paclitaxel. 2024 active Primary serous adenocarcino ma of endometrium 03/31 Palono setron IV intrave nously 0.25 mg once 2024 active Primary serous adenocarcino ma of endometrium 03/31 diphen hydram ine hydroc hlorid e 0.5 MG/ML Inject able Soluti on intrave nously 25.0 mg once Administer 30-60 minutes prior to paclitaxel. 2024 active Primary serous adenocarcino ma of endometrium 03/31 Solu-C ortef intrave nously 100.0 mg Re-initiate treatment only upon physician approval. 2024 active Primary serous adenocarcino ma of endometrium 03/31 carbop latin 10 MG/ML Inject able Soluti on intrave nously 835.0 mg once Mix in D5W or NS.Carboplatin is an irritant. 2024 active Primary serous adenocarcino ma of endometrium 03/31 1 ML epinep hrine 1 MG/ML Inject ion intramu scularl y 0.3 mg once Re-initiate treatment only upon physician approval. 2024 active Primary serous adenocarcino ma of endometrium 03/31 methyl predni solone 2000 MG Inject ion intrave nously 125.0 mg Re-initiate treatment only upon physician approval. 2024 active Primary serous adenocarcino ma of endometrium 03/31 diphen hydram ine hydroc hlorid e 0.5 MG/ML Inject able Soluti on intrave nously 50.0 mg Re-initiate treatment only upon physician approval. 2024 active Primary serous adenocarcino ma of endometrium 03/31 1 ML epinep hrine 1 MG/ML Inject ion intramu scularl y 0.3 mg once Re-initiate treatment only upon physician approval. 2024 active Primary serous adenocarcino ma of endometrium 03/31 Solu-C ortef intrave nously 100.0 mg Re-initiate treatment only upon physician approval. 2024 active Primary serous adenocarcino ma of endometrium 03/31 famoti dine 10 MG/ML Inject able Soluti on intrave nously 20.0 mg Re-initiate treatment only upon physician approval. 2024 active Primary serous adenocarcino ma of endometrium 06/02 oxycod one hydroc hlorid e 5 MG Oral Tablet orally 1.0 tablet every 4 hours 2024 active Primary serous adenocarcino ma of endometrium 03/31 Solu-C ortef intrave nously 100.0 mg Re-initiate treatment only upon physician approval. 2024 active Primary serous adenocarcino ma of endometrium 03/31 methyl predni solone 2000 MG Inject ion intrave nously 125.0 mg Re-initiate treatment only upon physician approval. 2024 active Primary serous adenocarcino ma of endometrium 03/31 1 ML epinep hrine 1 MG/ML Inject ion intramu scularl y 0.3 mg once Re-initiate treatment only upon physician approval. 2024 active Primary serous adenocarcino ma of endometrium 03/31 diphen hydram ine hydroc hlorid e 0.5 MG/ML Inject able Soluti on intrave nously 50.0 mg Re-initiate treatment only upon physician approval. 2024 active Primary serous adenocarcino ma of endometrium 03/31 famoti dine 10 MG/ML Inject able Soluti on intrave nously 20.0 mg Re-initiate treatment only upon physician approval. 2024 active Primary serous adenocarcino ma of endometrium 04/24 olanza pine 2.5 MG Oral Tablet orally 2.5 mg every day at bedtime 2024 active Primary serous adenocarcino ma of endometrium 03/31 1 ML epinep hrine 1 MG/ML Inject ion intramu scularl y 0.3 mg once Re-initiate treatment only upon physician approval. 2024 active Primary serous adenocarcino ma of endometrium 03/31 methyl predni solone 2000 MG Inject ion intrave nously 125.0 mg Re-initiate treatment only upon physician approval. 2024 active Primary serous adenocarcino ma of endometrium 03/31 famoti dine 10 MG/ML Inject able Soluti on intrave nously 20.0 mg Re-initiate treatment only upon physician approval. 2024 active Primary serous adenocarcino ma of endometrium 03/31 diphen hydram ine hydroc hlorid e 0.5 MG/ML Inject able Soluti on intrave nously 50.0 mg Re-initiate treatment only upon physician approval. 2024 active Primary serous adenocarcino ma of endometrium 03/31 Solu-C ortef intrave nously 100.0 mg Re-initiate treatment only upon physician approval. 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 P53 positive, positive washings. She'd been experiencing postmenopausal bleeding spotting for past year or so . Had prolonged episode of bleeding end of December,. No abdominal or pelvic pain. Occasional pelvic cramping.?? 01/27/25 Ultrasound?? FINDINGS: Sonographic images demonstrate a normal size and smooth outer contour of the uterus. Uterus measures 9.4 cm in length by 7.2 cm in AP diameter by 6.6 cm in transverse dimension. Hyperechoicstructure within the posterior mid myometrium measures 2.4 x 1.4 x 1.4 cm. The endometrial lining appears thickened and heterogeneous and measures 27 mm in composite thickness. The ovaries are not visualized. There are no suspicious fluid collections within the cul-de-sac. IMPRESSION: Thickened and heterogeneous endometrium measures up to 2.7 cm. Blood products appear annie present within the endometrial canal. Posterior uterine fibroid Is present measuring 2.4 cm. 02/06/25: Endometrial biopsy:?? FINDINGS: 1. Endometrial carcinoma: a. Histologic classification: - Subtype: Serous predominant carcinoma with focal clear cell carcinoma component - Grade: High grade by definition b. Molecular classification: p53 abnormal 2. Ancillary testing: a. DNA mismatch repair enzyme immunohistochemistry: -Proficient - MLH1, PMS2, MSH2, MSH6 normal expression b. p53 immunohistochemistry: Abnormally overexpressed mutant pattern c. POLE mutation: No mutation detected d. HER2 by IHC: Equivocal ( 2+ by manual morphometry) HER2 by FISH: Negative HER2/CEP17 ratio: 1.07 HER2 signals/cell: 2.36 CEP17 signals/cell: 2.20 Repeat HER2 testing is recommended at excision 03/03/25: CA125 = 10.8 U/mL 03/23/25:??Robotic assisted total laparoscopic hysterectomy, bilateral salpingo-oophorectomy,??bilateral pelvic sentinel lymph node??dissection, infracolic omentectomy, pelvic washings, cystoscopy. 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 05/12/25: C2 Carbo/taxol?CA125 = 11.4 U/mL 06/02/25: C3 Carbo/taxol (taxol reduced 10%) Genetic Testing (Medical Imaging Technologist Oncology): MMRp Interval History (Medical Imaging Technologist Oncology) She presents with her today. ??She states that she has a rash on the back of her head??thatis neither itchy nor tender, but her noticed it.?? Says it looks little bit like poison yoan. 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 ??Tender fingers and toes.?? Did not??stop after??a few days??like it did for cycle 1. Final issue is significant??muscle aches. ??She experiences this roughly day 3 through 6.?? She??used the last of her??oxycodone from the surgery??which did help. Review of Systems: A complete 14-point review of systems is negative except as noted??in the above history of present illness. 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 Menarche: 12 years old?? P2002 x 2?? Last pap:??Negative for intraepithelial lesion or malignancy??HPV negative 12/05/24 Allergies: No known medication allergies Medications: * Olanzapine Oral 2.5 mg tablet 2.5 mg orally every day at bedtime. Take for 4 days starting Day 1 ofchemotherapy for nausea. * Prochlorperazine Oral 10 mg tablet 1 tablet orally every 6 hours as needed for nausea. * Amlodipine Oral 2.5 mg tablet Take once daily * Claritin (Loratadine Oral) prn * Tylenol (Acetaminophen Oral) prn Family History: No family history of ovarian, uterine, colon cancer?? Maternal aunt - breast?? 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 Nonsmoker. No alcohol use. Lives with .?? Health Maintenance: Mammogram- 2024 BIRADS 1?? Vital Signs: Blood pressure: 139/63, R arm, Pulse: 92, Temperature: 97.8 F, Respirations: 16, O2 sat: 96%, At Rest, Room Air, Pain Scale: 0, Height: 65 in, Weight: 284 lb, BSA: 2.3, BMI: 47.26 kg/m2 Performance Status ECOG/Karnofsky ? 90% Able to carry on normal activity; minor signs or symptoms of disease. (Date: 04/21/2025) Physical Exam (Medical Imaging Technologist Oncology): GENERAL: Pleasant, in no acute distress. HEENT:??Mild folliculitis??accompanying??chemo induced alopecia.?? Scattered maculopapules pinpoint??throughout scalp, somewhat more confluent toward the back of her head, no signs of secondary infection CARDIAC: Regular rate and rhythm, S1, S2. ??No murmurs. ?? RESPIRATORY: Nonlabored. Lungs are clear to auscultation bilaterally. EXTREMITIES: No edema. Moves extremities without difficulty. NEURO: The patient is alert and oriented.?? Laboratory Data: CBC Lab Results 06/02/2025 05/11/2025 05/02/2025 04/21/2025 03/23/20 25 03/07/2025 CBC WBC x 10^3/uL 9.2 (H) 11.9 (H) 2.6 (L) 9.5 (H) RBC x 10^6/uL 3.99 4.38 4.08 4.63 NRBC % /100 wbc 0.0 0.0 0.0 0.0 HGB g/dL 12.1 13.1 12.4 13.9 HCT % 35.9 39.0 36.6 41.1 MCV fL 90.0 89.0 89.7 88.8 MCH pg 30.3 29.9 30.4 30.0 MCHC g/dL 33.7 33.6 33.9 33.8 RDW % 14.60 13.40 12.40 12.70 PLT x 10^3/uL 283 292 223 273 MPV fL 9.3 (L) 9.3 (L) 9.9 9.8 Luis Angel % 68.4 70.7 29.0 (L) 74.3 (H) LY % 22.8 18.3 44.6 (H) 16.7 MO % 6.1 6.1 19.8 (H) 5.8 (L) EO % 1.1 2.2 5.4 2.5 IG % 1.1 (H) 2.0 (H) 0.0 0.3 Luis Angel # (ANC) x 10^3/uL 6.3 8.4 (H) 0.8 (L) 7.0 (H) BA % 0.5 0.7 1.2 0.4 MO # x 10^3/uL 0.6 0.7 0.5 0.6 EO # x 10^3/uL 0.1 0.3 0.1 0.2 BA # x 10^3/uL 0.1 0.1 0.0 0.0 IG # x 10^3/uL 0.10 (H) 0.24 (H) 0.00 0.03 LY # x 10^3/uL 2.1 2.2 1.2 1.6 CMP Lab Results 06/02/2025 05/11/2025 05/02/2025 04/21/2025 03/23/20 03/07/2025 Chemistries Glucose mg/dL 106 (H) 106 (H) BUN mg/dL 18.0 (H) 24.0 (H) Creatinine mg/dL 0.90 1.00 Creatinine, iSTAT mg/dL 1.0 0.9 1.0 Sodium mmol/L 141 140 Potassium mmol/L 4.6 4.8 Chloride mmol/L 108 (H) 107 CO2 mmol/L 27 25 Calcium mg/dL 9.5 9.4 Albumin g/dL 4.3 4.2 Total protein g/dL 8.0 7.9 Bilirubin, total mg/dL 0.2 0.4 Alkaline phosphatase U/L 110 89 AST/SGOT U/L 35 28 ALT/SGPT U/L 28 20 GFR estimate mL/min/1.73m2 62.2 70.6; 70.6 62.2; 62.2 Magnesium, mg/dL 2.1 2.1 Lab Results 06/02/2025 05/11/2025 05/02/2025 04/21/2025 03/23/20 25 03/07/2025 Tumor Markers CA 125 U/mL 11.40 Imaging: As documented above?? 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 She is now s/p robotic assisted total laparoscopic hysterectomy??it is currently undergoing adjuvant??treatment in the form of systemic chemotherapy. Dr. Barnett is recommending 6 q. 21-day cycles??of carboplatin, paclitaxel* She is so far tolerating chemotherapy reasonably well * Cycle 3??labs well within the normal range. ?? Toxicities: 1) Neuropathy:??This has been getting slightly worse.?? Not relieved after cycle 2.?? She did get ice??mittens and socks and will be utilizing these today. ??I am dose reducing Taxol by 10% 2) Myalgia:??She is using Claritin, but still finds she gets bad muscle aches day 3 through 6.?? I have advised using Tylenol and ibuprofen during the day, and oxycodone at night to get through. ??I have refilled the oxycodone at the pharmacy today 3) Scalp rash:??Clinically appears to be mild folliculitis. ??It is improving. ??I explained this is due to is a??chemo??and her hair loss.?? Keep scalp well moisturized, watch and wait for now. Pain Care Management: Pain Scale: 0 Patient Care needs: Depressions Status: Was not screened Reason: Patient Refused; Screening Date: 06/02/2025 Psycho-Social PHQ-9 Follow-up Plan (if applicable): Smoking Status: Smoking Tobacco : Never smoker; Smokeless Tobacco : Never used smokeless tobacco; Vaping : Never vaped Ngoc Trejo APRN, CNP Copy to: Reina YA FAX Electronically signed by Ngoc Trejo APRN, CNP 06/02/2025 08:41 CDT
[2025-06-19 17:29] VITALS: BP 158/72; PULSE 118; RESP 24; TEMP 36.8; O2SAT 95; BMI 47.4
--- NOTE | 2025-06-19 17:52 | CRLHL7_ITS ---
For Patients: As a result of the 21st Century Cures Act, medical imaging exams and procedure reports are released immediately into your electronic medical record. You may view this report before your referring provider. If you have questions, please contact your health care provider. INDICATION: BLOOD CLOT SEEN ON US, DETERMINE HOW FAR THE CLOT FORMED. TECHNIQUE: CT chest without contrast and CT chest, abdomen and pelvis acquired with 150 cc of Isovue 370 IV contrast, dissection protocol. COMPARISON: CT chest, abdomen, and pelvis 03/13/2025. FINDINGS: CHEST: Cardiovascular structures: The unenhanced images demonstrate no evidence of aortic intramural thrombus. Thoracic aorta is normal in caliber without evidence of dissection. Heart size is normal. No pulmonary embolism. Mediastinum and moris: No mass or adenopathy. Lungs and pleura: The lungs are clear. No pleural effusion or pneumothorax. Chest wall and axilla: No mass or adenopathy. Bones: Unremarkable for age. ABDOMEN AND PELVIS: Liver: Diffuse fatty infiltration. Normal contour. No suspicious mass. Gallbladder and bile ducts: Unremarkable. Pancreas: Unremarkable. Spleen: Unremarkable. Adrenal glands: Unremarkable. Kidneys: Unremarkable. GI tract: Small duodenal diverticulum. Diverticulosis without pericolonic inflammation. No obstruction. Normal appendix. Vascular structures: Abdominal aorta is normal in caliber without evidence of dissection. Mesenteric arteries are patent. Evaluation for DVT limited due to phase of contrast; however, there is slight expansion and surrounding inflammatory stranding of the left common femoral and superficial femoral veins. No evidence for thrombus within the IVC. Lymph nodes: Unremarkable. Miscellaneous: Unremarkable. No free air or significant free fluid. Pelvic Organs: Interval hysterectomy. Bones: Unremarkable for age. IMPRESSION: 1. No aortic dissection, aneurysm, or acute intramural hematoma. 2. Evaluation for DVT limited due to phase of contrast; however, there is slight expansion and surrounding inflammatory stranding of the left common femoral and superficial femoral veins. No evidence for thrombus within the IVC. No pulmonary embolism visualized. 3. Hepatic steatosis. 4. Interval hysterectomy. Please note that all CT scans at this facility use dose modulation, iterative reconstruction, and/or weight-based dosing when appropriate to reduce radiation dose to as low as reasonably achievable. Dictated by Brendan Copeland MD @ 06/19/2025 6:58:15 PM (Electronically Signed)
--- NOTE | 2025-06-19 17:55 | ED.GENADULT ---
HPI - General Adult General Date Seen: 06/19/25 Chief complaint: Extremity Pain/Injury, Lower Stated complaint: blood clot in L leg Time Seen by Provider: 06/19/25 17:28 Source: patient Mode of arrival: ambulatory Limitations: no limitations History of Present Illness HPI narrative: Patient is a 64-year-old female with a history of endometrial cancer currently on chemotherapy presenting to the emergency department for a blood clot her left leg. She has been having increased pain behind the left knee and up to the left thigh so her provider ordered an ultrasound outpatient. This was done and there was showing that she had a blood clot going up to at least the iliac veins. Were unable to see any further with the ultrasound. Due to this patient was sent to the emergency department for further evaluation. Denies any chest pain or shortness of breath. No history of blood clots. Is not currently on any blood thinners. Denies any calf pain. Has been able to ambulate. No other concerns noted. Related Data Previous Rx's ?Medication ?Instructions ?Recorded lisinopril 10 mg tablet 10 mg PO QDAY #90 tabs 12/05/24 apixaban 5 mg (74 tabs) tablets in 5 mg PO BID #74 ea 06/19/25 a dose pack (Eliquis DVT-PE Treat 30D Start) Allergies Allergy/AdvReac Type Severity Reaction Status Date / Time seasonal Allergy Mild Itchy Uncoded 03/07/25 13:41 eyes, congestion Review of Systems Status of ROS: Reports: 10 or more systems reviewed and unremarkable except as noted in History and below [facility] Medical History Bronchitis ?J40 - Bronchitis, not specified as acute or chronic (ICD-10) Fracture of right wrist ?S62.101A - Fracture of unspecified carpal bone, right wrist, initial encounter for closed fracture (ICD-10) Surgical History History of robot-assisted laparoscopic hysterectomy ?Z90.710 - Acquired absence of both cervix and uterus (ICD-10) History of eye surgery ?Z98.890 - Other specified postprocedural states (ICD-10) History of cervical biopsy ?Z98.890 - Other specified postprocedural states (ICD-10) Status post surgical removal of ganglion cyst ?Z98.890 - Other specified postprocedural states (ICD-10) History of total right knee replacement ?Z96.651 - Presence of right artificial knee joint (ICD-10) History of total left knee replacement ?Z96.652 - Presence of left artificial knee joint (ICD-10) History of colonoscopy ?Z98.890 - Other specified postprocedural states (ICD-10) Family History Mother Diabetes High blood pressure Father Hyperlipemia Parkinson disease Pacemaker Family/Other High blood pressure Skin cancer Social History Narrative: Semi retired No illicit drug use No alcohol use Non-smoker Smoking Status: Never smoker Do you use any of these nicotine containing products: None Second hand tobacco smoke exposure: No How often do you have a drink containing alcohol: never AUDIT-C Alcohol total score: 0 Non-prescribed substance use: denies use service: No Exam Const: Vital Signs, click to edit/add: Vital Signs - 24 hr 06/19/25 17:29 Temperature 98.3 F Pulse Rate [Pulse Oximeter] 118 H Respiratory Rate 24 Blood Pressure [Ri ght Forearm] 158/72 H Pulse Oximetry 95 Oxygen Delivery Me thod Room Air Course Vital Signs Vital signs: Initial Vital Signs Temperature 98.3 F 06/19/25 17:29 Temperature Source Temporal Artery Scan 06/19/25 17:29 Pulse Rate 118 H 06/19/25 17:29 Respiratory Rate 24 06/19/25 17:29 Blood Pressure 158/72 H 06/19/25 17:29 Blood Pressure Mean 100 06/19/25 17:29 Pulse Oximetry 95 06/19/25 17:29 Oxygen Delivery Method Room Air 06/19/25 17:29 Vital Signs Temperature 98.3 F 06/19/25 17:29 Pulse Rate 118 H 06/19/25 17:29 Respiratory Rate 24 06/19/25 17:29 Blood Pressure 158/72 H 06/19/25 17:29 Pulse Oximetry 95 06/19/25 17:29 Oxygen Delivery Method Room Air 06/19/25 17:29 Temperature 98.3 F 06/19/25 17:29 Pulse Rate 118 H 06/19/25 17:29 Respiratory Rate 24 06/19/25 17:29 Blood Pressure 158/72 H 06/19/25 17:29 Pulse Oximetry 95 06/19/25 17:29 Oxygen Delivery Method Room Air 06/19/25 17:29 Medications Administered Medications: Discontinued Medications Generic Name Dose Route Start Last Admin Trade Name Remy PRN Reason Stop Dose Admin Apixaban 5 mg 06/19/25 19:36 06/19/25 19:41 Apixaban 5 Mg Tablet PO 06/19/25 19:37 5 mg ONCE ONE Administration Medical Decision Making MDM Narrative Medical decision making narrative: The patient 64-year-old female presenting for signs of blood clot leg. She is also tachycardic at 118. While she is not having any shortness of breath or chest pain it do believe is necessary to do a CTA of the chest along with imaging of the abdomen pelvis shows see how extensive this blood clot is. Due to limitations of our CT scanner being unable do a standing CTA PE study and even a scan the abdomen pelvis to look for extent of this blood clot but I mostly concerned about possible massive PE as either way the patient will need to be on a blood thinner. This should be able to be evaluated with the CTA chest abdomen pelvis. Lab work shows no concerning abnormalities. CTA is ordered done showing no signs of PE area a due to the phase of contrast is difficult to fully evaluate DVT but there is no evidence of thrombus within the IVC. There is no signs of color changes to the leg or other concern and red flag symptoms. Considering this I do believe she is safe to go home on a blood thinner. Is agreeable to this plan Lab Data Labs: Lab Results 06/19/25 06/19/25 Range/Units 17:42 17:56 WBC 8.25 (4.50-11.00) K/uL RBC 3.46 L (4.00-5.20) m/uL Hgb 10.4 L (12.0-16.0) gm/dL Hct 31.1 L (33.0-51.0) % MCV 90 (80-100) fL MCH 30 (26-34) pg MCHC 33 (32-36) gm/dL RDW Coeff of Pat 15.6 H (11.5-15.5) % Plt Count 149 (140-440) K/uL Neut % (Auto) 71.3 (42.0-72.0) % Lymph % (Auto) 17.3 L (20-44) % Archuleta % (Auto) 9.7 (0.0-11.0) % Eos % (Auto) 0.5 (0.0-7.0) % Baso % (Auto) 0.1 (0.0-3.0) % Neut # (Auto) 5.88 (1.7-7.0) K/uL Lymph # (Auto) 1.40 (0.90-2.90) K/uL Archuleta # (Auto) 0.80 (0.00-0.90) K/UL Eos # (Auto) 0.04 (0.00-0.50) K/uL Baso # (Auto) 0.01 (0.00-0.30) K/uL Abs Immat Gran (auto) 0.09 (0.00-0.30) K/uL Imm/Tot Granulo (auto) 1.1 % Sodium 141 (135-149) mmol/L Potassium 4.3 (3.6-5.1) mmol/L Chloride 105 (96-114) mmol/L Carbon Dioxide 26 (20-32) mmol/L Anion Gap 10 (7-15) mEq/L BUN 23 (7-30) mg/dL Creatinine 0.9 (0.5-1.5) mg/dL Estimated Creat Clear 50.47 Estimated GFR 71 ml/min Glucose 142 H (60-115) mg/dL Calcium 9.8 (8.4-10.6) mg/dL POC Creatinine 1.0 (0.6-1.3) mg/dl Imaging Data CTA CAP: Attestation: I have reviewed the pertinent imaging results. Radiologist's impression: 1. No aortic dissection, aneurysm, or acute intramural hematoma. 2. Evaluation for DVT limited due to phase of contrast; however, there is slight expansion and surrounding inflammatory stranding of the left common femoral and superficial femoral veins. No evidence for thrombus within the IVC. No pulmonary embolism visualized. 3. Hepatic steatosis. 4. Interval hysterectomy. Please note that all CT scans at this facility use dose modulation, iterative reconstruction, and/or weight-based dosing when appropriate to reduce radiation dose to as low as reasonably achievable. Dictated by Brendan Copelnad MD @ 06/19/2025 6:58:15 PM Discharge Plan Discharge Clinical Impression: DVT (deep venous thrombosis) Patient Disposition: Home, Self-Care Condition: Stable Instructions: Deep Vein Thrombosis (ED) Additional Instructions: Follow-up with your primary care provider. Take the blood thinning as directed. Be aware that this does increase your risk of bleeds and if you do hit your head I recommend evaluation Prescriptions: New Eliquis DVT-PE Treat 30D Start 5 mg (74 tabs) tablets,dose pack 5 mg PO BID Qty: 74 0RF Rx Instructions: take 10 mg twice daily for for 7 days then 5 mg twice daily the her after that No Action lisinopril 10 mg tablet 10 mg PO QDAY Qty: 90 3RF Follow Up/Referrals: Seven Bernal PA-C [Primary Care Provider, Family Practice] Stand Alone Forms: [employer] Info Instructions
--- OUTSIDE RECORDS SUMMARY | 2025-06-19 18:00 | XMS_ITS | CCD ---
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 Name Role Phone Ericka AARON, Jana Flores Unavailable Un available Allergies and Adverse Reactions Medication/Group Name Reaction Severity Date No known allergies Care Plan Date Type Value 06/23/2025 APPOINTMENT TREATMENT 5 HR 06/23/2025 APPOINTMENT OV 30 MIN 06/23/2025 APPOINTMENT LAB 15 MIN 06/02/2025 APPOINTMENT TREATMENT 5 HR 06/02/2025 APPOINTMENT LAB 15 MIN 06/02/2025 APPOINTMENT OV 30 MIN 05/12/2025 APPOINTMENT TREATMENT 5 HR 05/11/2025 APPOINTMENT LAB 15 MIN 05/11/2025 APPOINTMENT POST OP 30 MIN 05/02/2025 APPOINTMENT LAB 15 MIN 05/02/2025 APPOINTMENT OV 30 MIN 04/21/2025 APPOINTMENT TREATMENT 5 HR 04/21/2025 APPOINTMENT LAB 15 MIN 04/21/2025 APPOINTMENT OV 30 MIN 04/10/2025 APPOINTMENT TREATMENT TEACH 60 MIN 04/07/2025 APPOINTMENT POST OP 30 MIN 03/23/2025 APPOINTMENT SURGERY 1 HR 03/23/2025 APPOINTMENT SURGERY 1 HR 03/13/2025 APPOINTMENT OUTSIDE TEST 5 M IN 03/03/2025 APPOINTMENT LAB 15 MIN 03/03/2025 APPOINTMENT NEW PT CONSULT 6 0 MIN 03/03/2025 LABORDER CA 125 panel 03/13/[address] chest/abdomen /pelvis w/ contrast 04/21/2025 LABORDER CBC w/ auto diff 04/21/2025 LABORDER CMP 04/21/2025 LABORDER Magnesium Panel 04/21/2025 LABORDER iSTAT creatinine panel 05/02/2025 LABORDER CBC w/ auto diff 05/11/2025 LABORDER CMP 05/11/2025 LABORDER Magnesium Panel 05/11/2025 LABORDER CA 125 panel 05/11/2025 LABORDER CBC w/ auto diff 05/11/2025 LABORDER iSTAT creatinine panel 06/02/2025 LABORDER CMP 06/02/2025 LABORDER iSTAT creatinine panel 06/02/2025 LABORDER CA 125 panel 06/02/2025 LABORDER CBC w/ auto diff 06/19/2025 LABORDER Venous doppler u ltrasound of lower extremity, LT 06/23/2025 LABORDER CA 125 panel 06/23/2025 LABORDER iSTAT creatinine panel 06/23/2025 LABORDER CBC w/ auto diff 06/23/2025 LABORDER CMP Reason for Visit OV 30 MIN Encounters Date Name 06/23/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 06/23/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 06/23/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 06/02/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 06/02/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 06/02/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 06/23/2025 TREATMENT 5 HR 06/23/2025 OV 30 MIN 06/23/2025 LAB 15 MIN 06/02/2025 TREATMENT 5 HR 06/02/2025 LAB 15 MIN 06/02/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 Functional Status Date Name/Question Score/Answer 04/21/2025 Karnofsky performance status 90 Diagnostic Results Date Type Test Units Lower Limit Upper Limit Result Flag Comments Status Ordered By Specimen Source Lab Address 06/02 iSTAT creat inine panel GFR estim ate ml/min /1.73m ^2 62.2 GFR is calculate d using the CKD-EPI equation. FINAL Ngoc Trejo [facility] , [address] [facility] [address] [facility] [phone] 0 06/02 iSTAT creat inine panel Creat inine , iSTAT mg/dl 0.6 1.3 1.0 FINAL Ngoc Trejo [facility] , [address] [facility] [address] [facility] [phone] 0 06/02 CMP Alkal ine phosp hatas e U/L 36.0 125.0 102 FINAL Ngoc Czel * [facility] , [address] [facility] [id number] [phone] 06/02 CMP ALT/S GPT U/L 0.0 34.0 25 FINAL Ngoc Czel * [facility] , [address] [facility] [id number] 0 06/02 CMP Calci um mg/dL 8.4 10.2 9.5 FINAL Ngoc Czel * [facility] , [address] [facility] [id number] [phone] 06/02 CMP CO2 mmol/L 22.0 30.0 [...] the 96 hour stability window. FINAL Ngoc Czel * [facility] , [address] [facility] [id number] 06/02 CMP Gluco se mg/dL 74.0 100.0 111 High FINAL Ngoc Czel * [facility] , [address] [facility] [id number] [phone] 06/02 CMP Chlor dorie mmol/L 96.0 107.0 108 High FINAL Ngoc Czel * [facility] , [address] [facility] [id number] 06/02 CMP Total prote in g/dL 6.3 8.2 7.6 FINAL Ngoc Czel * [facility] , [address] [facility] [id number] 0 06/02 CMP BUN mg/dL 7.0 17.0 24.0 High FINAL Ngoc Czel * [facility] , [address] [facility] [id number] 0 06/02 CMP Creat inine mg/dL 0.66 1.25 1.00 FINAL Ngoc Czel * [facility] , [address] [facility] [id number] 06/02 CMP AST/S GOT U/L 14.0 36.0 31 FINAL Ngoc Czel * [facility] , [address] [id number] 06/02 CMP Album in g/dL 3.5 5.0 4.1 FINAL Ngoc Czel * [facility] , [address] [id number] 0 06/02 CMP Bilir ubin, total mg/dL 0.2 1.3 <0.1 Low FINAL Ngoc Czel * [facility] , [address] [id number] 0 06/02 CMP Sodiu m mmol/L 137.0 145.0 140 FINAL Ngoc Czel * [facility] , [address] [id number] 0 06/02 CMP Potas sium mmol/L 3.5 5.1 4.7 FINAL Ngoc Czel * [facility] , [address] [id number] 0 05/11 Magne sium, mg/dL mg/dL 1.6 2.3 2.1 FINAL Otoniel Unglaub * [facility] , [address] [id number] 0 03/23 [facility] other lab 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 06/02 CBC w/ auto diff Luis Angel # (ANC) K/uL 1.6 6.6 6.3 FINAL Ngoc Trejo [place] [facility] [place] [facility] , [address] [facility] [address] [place] [id number] 0 06/02 CBC w/ auto diff IG % % 0.0 0.5 1.1 High FINAL Ngocallegra Trejo [place] [facility] [place] [facility] , [address] [facility] [address] [facility] [id number] 0 06/02 CBC w/ auto diff MO # K/uL 0.2 1.3 0.6 FINAL Ngocallegra Trejo [place] [facility] [place] [facility] , [address] [place] [address] [address] [facility] [id number] 0 06/02 CBC w/ auto diff MCV fL 80.0 104.0 90.0 FINAL Ngocallegra Trejo [place] [facility] [place] [facility] , [address] [facility] [address] [place] [id number] 0 06/02 CBC w/ auto diff IG # K/uL 0.0 0.03 0.10 High FINAL Ngocallegra Trejo [place] [facility] [place] [facility] , [address] [facility] [address] [facility] [id number] 0 06/02 CBC w/ auto diff MO % % 6.0 15.0 6.1 FINAL Ngocallegra Trejo [place] [facility] [place] [facility] , [address] [facility] [address] [place] [id number] 0 06/02 CBC w/ auto diff EO # K/uL 0.0 0.6 0.1 FINAL Ngocallegra Trejo [place] [facility] [place] [facility] , [address] [facility] [address] [place] [id number] 0 06/02 CBC w/ auto diff EO % % 0.0 7.0 1.1 FINAL Ngocallegra Trejo [place] [facility] [place] [facility] , [address] [facility] [address] [place] [id number] 0 06/02 CBC w/ auto diff RBC M/uL 3.9 5.1 3.99 FINAL [facility]oc [place] [facility] [place] [facility] , [address] [facility] [address] [place] [id number] 0 06/02 CBC w/ auto diff MPV fL 9.5 13.4 9.3 Low FINAL Ngoc Trejo [place] [facility] [place] [facility] , [address] [place] [address] [address] [place] [id number] 0 06/02 CBC w/ auto diff WBC K/uL 3.0 8.9 9.2 High FINAL Ngoc Trejo [place] [facility] [place] [facility] , [address] [place] [address] [address] [place] [id number] 0 06/02 CBC w/ auto diff PLT K/uL 113.0 364.0 283 FINAL Ngoc Trejo [place] [facility] [place] [facility] , [address] [place] [address] [address] [place] [id number] 0 06/02 CBC w/ auto diff BA % % 0.0 2.0 0.5 FINAL Ng[facility] [place] [facility] [place] [facility] , [address] [place] [address] [address] [place] [id number] 0 06/02 CBC w/ auto diff BA # K/uL 0.0 0.2 0.1 FINAL Ngoc [place] [facility] [place] [facility] , [address] [place] [address] [address] [place] [id number] 0 06/02 CBC w/ auto diff HGB g/dL 11.3 15.2 12.1 FINAL Ngocallegra Trejo [place] [facility] [place] [facility] , [address] [place] [address] [address] [place] [id number] 0 06/02 CBC w/ auto diff RDW % 11.4 16.1 14.60 FINAL Ngoc Trejo [place] [facility] [place] [facility] , [address] [place] [address] [address] [place] [id number] 0 06/02 CBC w/ auto diff LY % % 14.0 41.0 22.8 FINAL Ngoc Trejo [facility] , [address] [facility] [address] [facility] [id number] 0 06/02 CBC w/ auto diff LY # K/uL 0.4 3.6 2.1 FINAL Ngoc Trejo [facility] , [address] [place] [address] [address] [facility] [id number] 0 06/02 CBC w/ auto diff MCH pg 26.0 35.0 30.3 FINAL Ngoc Trejo [facility] , [address] [place] [address] [address] [facility] [id number] 0 06/02 CBC w/ auto diff MCHC g/dL 30.0 35.0 33.7 FINAL Ngocallegra Trejo [facility] , [address] [place] [address] [address] [facility] [id number] 0 06/02 CBC w/ auto diff NRBC % #/100W BC 0.0 0.2 0.0 FINAL Ngoc Trejo [facility] , [address] [place] [address] [address] [facility] [id number] 0 06/02 CBC w/ auto diff HCT % 35.0 48.0 35.9 FINAL Ngocallegra Trejo [facility] , [address] [place] [address] [address] [facility] [id number] 0 06/02 CBC w/ auto diff Luis Angel % % 43.0 74.0 68.4 [facility] , [address] [place] [address] [address] [facility] [id number] 0 06/02 CA 125 panel CA 125 U/ML 0.0 35.0 8.30 Test performed at [facility] on a [employer] Immunoass ay Analyzer that uses an immunomet thai immunoass ay technique . Patient testing should not be performed using multiple cristhian miranda due to analytica l variation seen between test cristhian miranda. FINAL Ngoc Trejo * [facility] , [address] [facility] [address] [facility] [id number] Medications Administered Date Name Route Dose Frequency Instructions Start Date End Date Status 06/02/2025 carboplatin 10 MG/ML Injectable Solution intravenously 835.0 mg once Mix in D5W or NS.Carboplatin is an irritant. 06/02/2025 06/02/2025 inactive 06/02/2025 paclitaxel 6 MG/ML Injectable Solution intravenously 360.0 mg once Dilute in 250-500 mL NS. Final product concentration must be 0.3-1.2 mg/mL. Administer using How-APTW-aiorvi amairani equipment and through an in-line 0.22 micron filter. Paclitaxel is a vascular irritant. 06/02/2025 06/02/2025 inactive 06/02/2025 dexamethason e sodium phosphate intravenously 20.0 mg once Administer 30-60 minutes prior to paclitaxel. 06/02/2025 06/02/2025 inactive 06/02/2025 18 ML aprepitant 7.2 MG/ML Injection intravenously 130.0 mg once Administer 30 minutes prior to chemotherapy. Do NOT dilute. Flush with NS before and after administration. 06/02/2025 06/02/2025 inactive 06/02/2025 2 ML famotidine 10 MG/ML Injection intravenously 20.0 mg once Administer 30-60 minutes prior to paclitaxel. 06/02/2025 06/02/2025 inactive 06/02/2025 diphenhydram ine hydrochlorid e 0.5 MG/ML Injectable Solution intravenously 25.0 mg once Administer 30-60 minutes prior to paclitaxel. 06/02/2025 06/02/2025 inactive 06/02/2025 Palonosetron IV intravenously 0.25 mg once 06/02/2025 06/02/2025 inactive 05/12/2025 carboplatin 10 MG/ML Injectable Solution intravenously 900.0 mg once Mix in D5W or NS.Carboplatin is an irritant. 05/12/2025 05/12/2025 inactive 05/12/2025 paclitaxel 6 MG/ML Injectable Solution intravenously 402.0 mg once Dilute in 250-500 mL NS. Final product concentration must be 0.3-1.2 mg/mL. Administer using [id number] amairani equipment and through an in-line 0.22 micron filter. Paclitaxel is a vascular irritant. 05/12/2025 05/12/2025 inactive 05/12/2025 18 ML aprepitant 7.2 MG/ML Injection intravenously 130.0 mg once Administer 30 minutes prior to chemotherapy. Do NOT dilute. Flush with NS before and after administration. 05/12/2025 05/12/2025 inactive 05/12/2025 dexamethason e sodium phosphate intravenously 20.0 mg once Administer 30-60 minutes prior to paclitaxel. 05/12/2025 05/12/2025 inactive 05/12/2025 diphenhydram ine hydrochlorid e 0.5 MG/ML Injectable Solution intravenously 25.0 mg once Administer 30-60 minutes prior to paclitaxel. 05/12/2025 05/12/2025 inactive 05/12/2025 2 ML famotidine 10 MG/ML Injection intravenously 20.0 mg once Administer 30-60 minutes prior to paclitaxel. 05/12/2025 05/12/2025 inactive 05/12/2025 Palonosetron IV intravenously 0.25 mg once 05/12/2025 05/12/2025 inactive 04/21/2025 carboplatin 10 MG/ML Injectable Solution intravenously 840.0 mg once Mix in D5W or NS.Carboplatin is an irritant. 04/21/2025 04/21/2025 inactive 04/21/2025 paclitaxel 6 MG/ML Injectable Solution intravenously 402.0 mg once Dilute in 250-500 mL NS. Final product concentration must be 0.3-1.2 mg/mL. Administer using [id number] amairani equipment and through an in-line 0.22 micron filter. Paclitaxel is a vascular irritant. 04/21/2025 04/21/2025 inactive 04/21/2025 dexamethason e sodium phosphate intravenously 20.0 mg once Administer 30-60 minutes prior to paclitaxel. 04/21/2025 04/21/2025 inactive 04/21/2025 18 ML aprepitant 7.2 MG/ML Injection intravenously 130.0 mg once Administer 30 minutes prior to chemotherapy. Do NOT dilute. Flush with NS before and after administration. 04/21/2025 04/21/2025 inactive 04/21/2025 2 ML famotidine 10 MG/ML Injection intravenously 20.0 mg once Administer 30-60 minutes prior to paclitaxel. 04/21/2025 04/21/2025 inactive 04/21/2025 diphenhydram ine hydrochlorid e 0.5 MG/ML Injectable Solution intravenously 25.0 mg once Administer 30-60 minutes prior to paclitaxel. 04/21/2025 04/21/2025 inactive 04/21/2025 Palonosetron IV intravenously 0.25 mg once 04/21/2025 04/21/2025 inactive Medications Date Name Route Dose Frequency Instructions Start Date End Date Status Fill Status Indication 04/07 Furose mide Oral Take once daily inactive 04/07 Hydrox ychlor oquine Oral Take 2 times daily inactive 04/07 Mirabe gron Oral ER Suspen carol Take once daily inactive 04/07 Calciu m-Chol ecalci ferol Oral 600 mg-10 mcg (400 unit) Take 2 tablets once daily inactive 03/03 Lisino pril Oral orally 1.0 tablet daily inactive 04/07 Cetiri zine Oral Take once daily inactive 04/07 Allopu rinol Oral Take once daily inactive 04/07 Magnes ium Oral Take once daily inactive 04/07 Metfor min Oral Take once daily inactive 04/07 Potass ium Chlori de Oral ER Tab take once daily inactive 04/07 Rosuva statin Calciu m Oral take once daily inactive 04/07 Levoth yroxin e Oral Take once daily inactive 05/02 Lorata dine Oral prn active 04/07 Amlodi pine Oral Take once daily active 04/07 Cholec alcife rol Oral take once daily inactive 04/07 Coenzy me Q10 Oral Take once daily inactive 04/07 colchi cine Oral 0.6 mg Take once daily inactive 04/07 Diphen hydram ine Oral PRN inactive 04/07 Omepra zole Oral Delaye d Releas e Capsul e Take once daily inactive 04/07 Multiv itamin s Oral Tablet Gummy's inactive 04/07 Metopr olol Oral (Tartr ate) take once daily inactive 04/07 Acetam inophe n Oral Take 3 times daily inactive 04/07 Flutic asone Nasal [place] 50 mcg/ac tuatio n take PRN inactive 04/07 Tizani dine Oral take 2 times daily inactive 04/07 Diclof enac Topica l Gel 1 % PRN inactive 03/03 Acetam inophe n Oral prn active 04/07 Aspiri n Oral Take 2 times daily inactive 04/07 Zonisa mide Oral take 2 capsules once daily at HS inactive 04/07 Psylli um Oral Powder take once daily inactive 04/07 Albute rol HFA Inhale r 90 mcg/ac tuatio n Take PRN inactive 04/07 Docusa te Sodium Oral Take 2 times daily inactive 04/07 Gabape ntin Oral Take 3 times daily inactive 03/31 carbop latin 10 MG/ML Inject able Soluti on intrave nously 835.0 mg once Mix in D5W or NS.Carboplatin is an irritant. 2024 active Primary serous adenocarcin francesco of endometrium 04/03 18 ML aprepi tant 7.2 MG/ML Inject ion intrave nously 130.0 mg once Administer 30 minutes prior to chemotherapy. Do NOT dilute. Flush with NS before and after administration . 2024 active Primary serous adenocarcin francesco of endometrium 03/31 1 ML epinep hrine 1 MG/ML Inject ion intramu scularl y 0.3 mg once Re-initiate treatment only upon physician approval. 2024 active Primary serous adenocarcin francesco of endometrium 03/31 Solu-C ortef intrave nously 100.0 mg Re-initiate treatment only upon physician approval. 2024 active Primary serous adenocarcin francesco of endometrium 03/31 paclit roxanne 6 MG/ML Inject able Soluti on intrave nously 360.0 mg once Dilute in 250-500 mL NS. Final product concentration must be 0.3-1.2 mg/mL. Administer using [id number] ining equipment and through an in-line 0.22 micron filter. Paclitaxel is a vascular irritant. 2024 active Primary serous adenocarcin francesco of endometrium 03/31 dexame thason e sodium phosph ate intrave nously 20.0 mg once Administer 30-60 minutes prior to paclitaxel. 2024 active Primary serous adenocarcin francesco of endometrium 03/31 methyl predni solone 2000 MG Inject ion intrave nously 125.0 mg Re-initiate treatment only upon physician approval. 2024 active Primary serous adenocarcin francesco of endometrium 03/31 diphen hydram ine hydroc hlorid e 0.5 MG/ML Inject able Soluti on intrave nously 25.0 mg once Administer 30-60 minutes prior to paclitaxel. 2024 active Primary serous adenocarcin francesco of endometrium 03/31 2 ML famoti dine 10 MG/ML Inject ion intrave nously 20.0 mg once Administer 30-60 minutes prior to paclitaxel. 2024 active Primary serous adenocarcin francesco of endometrium 03/31 famoti dine 10 MG/ML Inject able Soluti on intrave nously 20.0 mg Re-initiate treatment only upon physician approval. 2024 active Primary serous adenocarcin francesco of endometrium 03/31 diphen hydram ine hydroc hlorid e 0.5 MG/ML Inject able Soluti on intrave nously 50.0 mg Re-initiate treatment only upon physician approval. 2024 active Primary serous adenocarcin francesco of endometrium 03/31 Palono setron IV intrave nously 0.25 mg once 2024 active Primary serous adenocarcin francesco of endometrium 03/31 paclit roxanne 6 MG/ML Inject able Soluti on intrave nously 360.0 mg once Dilute in 250-500 mL NS. Final product concentration must be 0.3-1.2 mg/mL. Administer using [id number] ining equipment and through an in-line 0.22 micron filter. Paclitaxel is a vascular irritant. 2024 active Primary serous adenocarcin francesco of endometrium 03/31 famoti dine 10 MG/ML Inject able Soluti on intrave nously 20.0 mg Re-initiate treatment only upon physician approval. 2024 active Primary serous adenocarcin francesco of endometrium 03/31 2 ML famoti dine 10 MG/ML Inject ion intrave nously 20.0 mg once Administer 30-60 minutes prior to paclitaxel. 2024 active Primary serous adenocarcin francesco of endometrium 03/31 carbop latin 10 MG/ML Inject able Soluti on intrave nously 835.0 mg once Mix in D5W or NS.Carboplatin is an irritant. 2024 active Primary serous adenocarcin francesco of endometrium 04/03 18 ML aprepi tant 7.2 MG/ML Inject ion intrave nously 130.0 mg once Administer 30 minutes prior to chemotherapy. Do NOT dilute. Flush with NS before and after administration . 2024 active Primary serous adenocarcin francesco of endometrium 03/31 dexame thason e sodium phosph ate intrave nously 20.0 mg once Administer 30-60 minutes prior to paclitaxel. 2024 active Primary serous adenocarcin francesco of endometrium 03/31 methyl predni solone 2000 MG Inject ion intrave nously 125.0 mg Re-initiate treatment only upon physician approval. 2024 active Primary serous adenocarcin francesco of endometrium 03/31 Solu-C ortef intrave nously 100.0 mg Re-initiate treatment only upon physician approval. 2024 active Primary serous adenocarcin francesco of endometrium 03/31 Palono setron IV intrave nously 0.25 mg once 2024 active Primary serous adenocarcin francesco of endometrium 03/31 1 ML epinep hrine 1 MG/ML Inject ion intramu scularl y 0.3 mg once Re-initiate treatment only upon physician approval. 2024 active Primary serous adenocarcin francesco of endometrium 03/31 diphen hydram ine hydroc hlorid e 0.5 MG/ML Inject able Soluti on intrave nously 50.0 mg Re-initiate treatment only upon physician approval. 2024 active Primary serous adenocarcin francesco of endometrium 03/31 diphen hydram ine hydroc hlorid e 0.5 MG/ML Inject able Soluti on intrave nously 25.0 mg once Administer 30-60 minutes prior to paclitaxel. 2024 active Primary serous adenocarcin francesco of endometrium 03/31 2 ML famoti dine 10 MG/ML Inject ion intrave nously 20.0 mg once Administer 30-60 minutes prior to paclitaxel. 2024 active Primary serous adenocarcin francesco of endometrium 03/31 carbop latin 10 MG/ML Inject able Soluti on intrave nously 835.0 mg once Mix in D5W or NS.Carboplatin is an irritant. 2024 active Primary serous adenocarcin francesco of endometrium 03/31 Palono setron IV intrave nously 0.25 mg once 2024 active Primary serous adenocarcin francesco of endometrium 03/31 diphen hydram ine hydroc hlorid e 0.5 MG/ML Inject able Soluti on intrave nously 25.0 mg once Administer 30-60 minutes prior to paclitaxel. 2024 active Primary serous adenocarcin francesco of endometrium 03/31 methyl predni solone 2000 MG Inject ion intrave nously 125.0 mg Re-initiate treatment only upon physician approval. 2024 active Primary serous adenocarcin francesco of endometrium 03/31 paclit roxanne 6 MG/ML Inject able Soluti on intrave nously 360.0 mg once Dilute in 250-500 mL NS. Final product concentration must be 0.3-1.2 mg/mL. Administer using [id number] ining equipment and through an in-line 0.22 micron filter. Paclitaxel is a vascular irritant. 2024 active Primary serous adenocarcin francesco of endometrium 03/31 1 ML epinep hrine 1 MG/ML Inject ion intramu scularl y 0.3 mg once Re-initiate treatment only upon physician approval. 2024 active Primary serous adenocarcin francesco of endometrium 04/03 18 ML aprepi tant 7.2 MG/ML Inject ion intrave nously 130.0 mg once Administer 30 minutes prior to chemotherapy. Do NOT dilute. Flush with NS before and after administration . 2024 active Primary serous adenocarcin francesco of endometrium 03/31 Solu-C ortef intrave nously 100.0 mg Re-initiate treatment only upon physician approval. 2024 active Primary serous adenocarcin francesco of endometrium 03/31 diphen hydram ine hydroc hlorid e 0.5 MG/ML Inject able Soluti on intrave nously 50.0 mg Re-initiate treatment only upon physician approval. 2024 active Primary serous adenocarcin francesco of endometrium 03/31 dexame thason e sodium phosph ate intrave nously 20.0 mg once Administer 30-60 minutes prior to paclitaxel. 2024 active Primary serous adenocarcin francesco of endometrium 03/31 famoti dine 10 MG/ML Inject able Soluti on intrave nously 20.0 mg Re-initiate treatment only upon physician approval. 2024 active Primary serous adenocarcin francesco of endometrium 03/31 1 ML epinep hrine 1 MG/ML Inject ion intramu scularl y 0.3 mg once Re-initiate treatment only upon physician approval. 2024 active Primary serous adenocarcin francesco of endometrium 03/31 Solu-C ortef intrave nously 100.0 mg Re-initiate treatment only upon physician approval. 2024 active Primary serous adenocarcin francesco of endometrium 03/31 methyl predni solone 2000 MG Inject ion intrave nously 125.0 mg Re-initiate treatment only upon physician approval. 2024 active Primary serous adenocarcin francesco of endometrium 03/31 diphen hydram ine hydroc hlorid e 0.5 MG/ML Inject able Soluti on intrave nously 50.0 mg Re-initiate treatment only upon physician approval. 2024 active Primary serous adenocarcin francesco of endometrium 03/31 famoti dine 10 MG/ML Inject able Soluti on intrave nously 20.0 mg Re-initiate treatment only upon physician approval. 2024 active Primary serous adenocarcin francesco of endometrium 06/02 oxycod one hydroc hlorid e 5 MG Oral Tablet orally 1.0 tablet every 4 hours 2024 active Primary serous adenocarcin francesco of endometrium 03/31 1 ML epinep hrine 1 MG/ML Inject ion intramu scularl y 0.3 mg once Re-initiate treatment only upon physician approval. 2024 active Primary serous adenocarcin francesco of endometrium 03/31 diphen hydram ine hydroc hlorid e 0.5 MG/ML Inject able Soluti on intrave nously 50.0 mg Re-initiate treatment only upon physician approval. 2024 active Primary serous adenocarcin francesco of endometrium 03/31 methyl predni solone 2000 MG Inject ion intrave nously 125.0 mg Re-initiate treatment only upon physician approval. 2024 active Primary serous adenocarcin francesco of endometrium 03/31 Solu-C ortef intrave nously 100.0 mg Re-initiate treatment only upon physician approval. 2024 active Primary serous adenocarcin francesco of endometrium 03/31 famoti dine 10 MG/ML Inject able Soluti on intrave nously 20.0 mg Re-initiate treatment only upon physician approval. 2024 active Primary serous adenocarcin francesco of endometrium 04/24 olanza pine 2.5 MG Oral Tablet orally 2.5 mg every day at bedtime 2024 active Primary serous adenocarcin francesco of endometrium 03/31 1 ML epinep hrine 1 MG/ML Inject ion intramu scularl y 0.3 mg once Re-initiate treatment only upon physician approval. 2024 active Primary serous adenocarcin francesco of endometrium 03/31 diphen hydram ine hydroc hlorid e 0.5 MG/ML Inject able Soluti on intrave nously 50.0 mg Re-initiate treatment only upon physician approval. 2024 active Primary serous adenocarcin francesco of endometrium 03/31 famoti dine 10 MG/ML Inject able Soluti on intrave nously 20.0 mg Re-initiate treatment only upon physician approval. 2024 active Primary serous adenocarcin francesco of endometrium 03/31 Solu-C ortef intrave nously 100.0 mg Re-initiate treatment only upon physician approval. 2024 active Primary serous adenocarcin francesco of endometrium 03/31 methyl predni solone 2000 MG Inject ion intrave nously 125.0 mg Re-initiate treatment only upon physician approval. 2024 active Primary serous adenocarcin francesco of endometrium 04/03 prochl orpera zine 10 MG Oral Tablet orally 1.0 tablet every 6 hours 2024 active Primary serous adenocarcin francesco of endometrium 04/03 olanza pine 2.5 MG Oral Tablet orally 2.5 mg every day at bedtime 2024 active Primary serous adenocarcin francesco of endometrium 03/31 prochl orpera zine 10 MG Oral Tablet orally 1.0 tablet every 6 hours 03/31 inactive Primary serous adenocarcin francesco of endometrium 03/31 olanza pine 2.5 MG Oral Tablet orally 2.5 mg every day at bedtime 03/31 inactive Primary serous adenocarcin francesco of endometrium Patient Education Date Type Value 04/21/2025 Carboplatin 04/21/2025 Paclitaxel (Conv entional) Problems Diagnosis Status Date of Diagnosis Resolution Date 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 Malignant neoplasm of endome trium of corpus uteri (disorder) Active Procedures Date Category Name Instructions Status 03/03/2025 Physician Order Pelvic examinati on (List separately in addition to code for primary procedure) Administered 03/13/[address] chest/abdomen/pelvis w/ contrast Ordered 04/07/2025 Physician Order RTC post-op follow-up 2 w eeks post op with FELTER TENNIS BALLS [place] Ordered 04/10/2025 Physician Order RTC patient teaching RN P atient Teaching Visit Ordered 04/21/2025 Physician Order RTC BAND RIPSAW OPERATOR/PA and infusion Carbo/Ta xol Ordered 05/02/2025 Physician Order RTC BAND RIPSAW OPERATOR Toxicity check Order ed 05/12/2025 Physician Order RTC BAND RIPSAW OPERATOR/PA and infusion Ca rbo/Taxol and post op with Ngoc/Trang Ordered 06/02/2025 Physician Order RTC BAND RIPSAW OPERATOR/PA and infusion Carbo/Ta xol Ordered 06/19/2025 Physician Order Venous doppler ultrasound of lower extremity, LT U/S LLE to rule out DVT. Patient having pain to LLE behind L knee and L thigh. Please call abnormal results between 8 am and 5 pm to PENNIE Grossman at [phone]. If after 5 pm, please call abnormal results to [phone] and ask for FELTER TENNIS BALLS provider cashier receptionist. Ordered 06/23/2025 Physician Order RTC BAND RIPSAW OPERATOR/PA and infusion Carbo/Ta xol Ordered Social History Date Name Value 03/03/2025 Smoking Status Never smoker 05/02/2025 Sex Female Visits Date Type Value 06/23/2025 LAB 15 MIN 06/23/2025 TREATMENT 5 HR 06/23/2025 OV 30 MIN Vital Signs Date Type Value 03/03/2025 Body Temperature 97.20 03/03/2025 Heart Beat 70.00 03/03/2025 Respiratory Rate 16.00 03/03/2025 Oxygen Saturation 98.00 03/03/2025 BSA 2.30 03/03/2025 Pain Scale 0.00 03/03/2025 Weight 285.20 03/03/2025 Height 65.00 03/03/2025 BMI 47.46 03/03/2025 Intravascular Systolic 132 03/03/2025 Intravascular Diastolic 94 04/07/2025 Body Temperature 98.20 04/07/2025 Heart Beat 90.00 04/07/2025 Respiratory Rate 16.00 04/07/2025 Oxygen Saturation 98.00 04/07/2025 Intravascular Systolic 128 04/07/2025 Intravascular Diastolic 78 04/07/2025 Pain Scale 0.00 04/07/2025 Weight 284.20 04/07/2025 Height 65.00 04/07/2025 BMI 47.29 04/07/2025 BSA 2.30 04/21/2025 Body Temperature 97.30 04/21/2025 Heart Beat 78.00 04/21/2025 Respiratory Rate 16.00 04/21/2025 Oxygen Saturation 97.00 04/21/2025 BSA 2.30 04/21/2025 Pain Scale 0.00 04/21/2025 Weight 284.40 04/21/2025 Height 65.00 04/21/2025 BMI 47.33 04/21/2025 Intravascular Systolic 132 04/21/2025 Intravascular Diastolic 61 05/02/2025 Heart Beat 78.00 05/02/2025 Oxygen Saturation 98.00 05/02/2025 Body Temperature 97.00 05/02/2025 Respiratory Rate 16.00 05/02/2025 Pain Scale 0.00 05/02/2025 Weight 283.80 05/02/2025 Height 65.00 05/02/2025 BMI 47.23 05/02/2025 Intravascular Systolic 118 05/02/2025 Intravascular Diastolic 70 05/02/2025 BSA 2.30 05/11/2025 BMI 47.53 05/11/2025 Height 65.00 05/11/2025 Weight 285.60 05/11/2025 Pain Scale 0.00 05/11/2025 BSA 2.30 05/11/2025 Respiratory Rate 16.00 05/11/2025 Heart Beat 90.00 05/11/2025 Body Temperature 98.00 05/11/2025 Intravascular Systolic 118 05/11/2025 Intravascular Diastolic 70 05/11/2025 Oxygen Saturation 97.00 05/12/2025 Pain Scale 0.00 05/12/2025 Height 65.00 05/12/2025 Intravascular Systolic 132 05/12/2025 Intravascular Diastolic 76 05/12/2025 Oxygen Saturation 97.00 05/12/2025 Respiratory Rate 18.00 05/12/2025 Heart Beat 74.00 05/12/2025 Body Temperature 96.50 06/02/2025 Respiratory Rate 16.00 06/02/2025 Heart Beat 92.00 06/02/2025 Body Temperature 97.80 06/02/2025 Oxygen Saturation 96.00 06/02/2025 BSA 2.30 06/02/2025 Pain Scale 0.00 06/02/2025 Weight 284.00 06/02/2025 Height 65.00 06/02/2025 BMI 47.26 06/02/2025 Intravascular Systolic 139 06/02/2025 Intravascular Diastolic 63 Notes Section * FELTER TENNIS BALLS Follow-Up GYNECOLOGIC ONCOLOGY FOLLOW-UP VISIT Patient Name: NGOC GREEN : 1960 Date of Visit: 06/02/2025 Referring Provider: ? 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 P53 positive, positive washings. She'd been experiencing postmenopausal bleeding spotting for past year or so . Had prolonged episode of bleeding end of December,. No abdominal or pelvic pain. Occasional pelvic cramping.? 01/27/25 Ultrasound? FINDINGS: Sonographic images demonstrate a normal size [...] Is present measuring 2.4 cm. 02/06/25: Endometrial biopsy:? FINDINGS: 1. Endometrial carcinoma: a. Histologic classification: [...] at excision 03/03/25: CA125 = 10.8 U/mL 03/23/25:?Robotic assisted total laparoscopic hysterectomy, bilateral salpingo-oophorectomy,?bilateral pelvic sentinel lymph node?dissection, infracolic omentectomy, pelvic washings, cystoscopy. 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 05/12/25: C2 Carbo/taxol?CA125 = 11.4 U/mL 06/02/25: C3 Carbo/taxol (taxol reduced 10%) Genetic Testing (Paradichlorobenzene Machine Operator Oncology): MMRp Interval History (Paradichlorobenzene Machine Operator Oncology) She presents with her today. ?She states that she has a rash on the back of her head?that is neither itchy nor tender, but her noticed it.? Says it looks little bit like poison yoan. 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 ?Tender fingers and toes.? Did not?stop after?a few days?like it did for cycle 1. Final issue is significant?muscle aches. ?She experiences this roughly day 3 through 6.? She?used the last of her?oxycodone from the surgery?which did help. Review of Systems: A complete 14-point review of systems is negative except as noted?in the above history of present illness. 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 Menarche: 12 years old? P2002 x 2? Last pap:?Negative for intraepithelial lesion or malignancy?HPV negative 12/05/24 Allergies: No known medication allergies [...] No family history of ovarian, uterine, colon cancer? Maternal aunt - breast? 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 Nonsmoker. No alcohol use. Lives with .? Health Maintenance: Mammogram- 2024 BIRADS 1? Vital Signs: Blood pressure: 139/63, R arm, Pulse: 92, Temperature: 97.8 F, Respirations: 16, O2 sat: 96%, At Rest, Room Air, Pain Scale: 0, Height: 65 in, Weight: 284 lb, BSA: 2.3, BMI: 47.26 kg/m2 Performance Status ECOG/Karnofsky ? 90% Able to carry on normal activity; minor signs or symptoms of disease. (Date: 04/21/2025) Physical Exam (Paradichlorobenzene Machine Operator Oncology): GENERAL: Pleasant, in no acute distress. HEENT:?Mild folliculitis?accompanying?chemo induced alopecia.? Scattered maculopapules pinpoint?throughout scalp, somewhat more confluent toward the back of her head, no signs of secondary infection CARDIAC: Regular rate and rhythm, S1, S2. ?No murmurs. ? RESPIRATORY: Nonlabored. Lungs are clear to auscultation bilaterally. EXTREMITIES: No edema. Moves extremities without difficulty. NEURO: The patient is alert and oriented.? Laboratory Data: CBC Lab Results 06/02/2025 05/11/2025 [...] 06/02/2025 05/11/2025 05/02/2025 04/21/2025 03/23/20 25 03/07/2025 Chemistries Glucose mg/dL 106 (H) 106 [...] CA 125 U/mL 11.40 Imaging: As documented above? Problems: * Primary serous adenocarcinoma of endometrium * Malignant neoplasm of endometrium of corpus uteri (disorder) * Serous carcinoma of body of uterus Assessment & Plan (Paradichlorobenzene Machine Operator Oncology): Ngoc Green is a?64-year-old female, recently diagnosed with?stage IC high-grade serous of the endometrium, p53 positive?with positive washings. She is now s/p robotic assisted total laparoscopic hysterectomy?it is currently undergoing adjuvant?treatment in the form of systemic chemotherapy. Dr. Barnett is recommending 6 q. 21-day cycles?of carboplatin, paclitaxel* She is so far tolerating chemotherapy reasonably well * Cycle 3?labs well within the normal range. ? Toxicities: 1) Neuropathy:?This has been getting slightly worse.? Not relieved after cycle 2.? She didget ice?mittens and socks and will be utilizing these today. ?I am dose reducing Taxol by 10% 2) Myalgia:?She is using Claritin, but still finds she gets bad muscle aches day 3 through 6.? I have advised using Tylenol and ibuprofen during the day, and oxycodone at night to get through. ?I have refilled the oxycodone at the pharmacy today 3) Scalp rash:?Clinically appears to be mild folliculitis. ?It is improving. ?I explained this is due to is a?chemo?and her hair loss.? Keep scalp well moisturized, watch and wait [...] Ngoc Trejo APRN, CNP 06/02/2025 08:41 CDT * FELTER TENNIS BALLS Follow-Up GYNECOLOGIC ONCOLOGY FOLLOW-UP VISIT Patient Name: NGOC GREEN : 1960 Date of Visit: 05/11/2025 Referring Provider: ? 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 P53 positive, positive washings. She's been experiencing postmenopausal bleeding spotting for past year or so . Had prolonged episode of bleeding end of December,. No abdominal or pelvic pain. Occasional pelvic cramping.? 01/27/25 Ultrasound? FINDINGS: Sonographic images demonstrate a normal size [...] Is present measuring 2.4 cm. 02/06/25: Endometrial biopsy:? FINDINGS: 1. Endometrial carcinoma: a. Histologic classification: [...] at excision 03/03/25: CA125 = 10.8 U/mL 03/23/25:?Robotic assisted total laparoscopic hysterectomy, bilateral salpingo-oophorectomy,?bilateral pelvic sentinel lymph node?dissection, infracolic omentectomy, pelvic washings, cystoscopy. 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 05/12/25: C2 Carbo/taxol? Genetic Testing (Paradichlorobenzene Machine Operator Oncology): MMRp Interval History (Paradichlorobenzene Machine Operator Oncology) She?is here?for?chemotherapy surveillance a day early. ?She will be coming to the office first thing tomorrow?for carbo and Taxol. She is doing relatively well. ?No nausea or vomiting, no?significant neuropathy.? The achiness she had after cycle 1 is gone away. Postoperatively she has not had any?vaginal bleeding, and bowel bladder habits are normal. Review of Systems: A complete 14-point review of systems is negative except as noted?in the above history of present illness. 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 Menarche: 12 years old? P2002 x 2? Last pap:?Negative for intraepithelial lesion or malignancy?HPV negative 12/05/24 Allergies: No known medication allergies Medications: * Olanzapine Oral 2.5 mg tablet 2.5 mg orally every day at bedtime. Take for 4 days starting Day 1 ofchemotherapy for nausea. * Prochlorperazine Oral 10 mg tablet 1 tablet orally every 6 hours as needed for nausea. * Tylenol (Acetaminophen Oral) prn * Claritin (Loratadine Oral) prn * Amlodipine Oral 2.5 mg tablet Take once daily Family History: No family history of ovarian, uterine, colon cancer? Maternal aunt - breast? 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 Nonsmoker. No alcohol use. Lives with .? Health Maintenance: Mammogram- 2024 BIRADS 1? Vital Signs: Blood pressure: 118/70, Pulse: 90, Temperature: 98 F, Respirations: 16, O2 sat: 97%, Pain Scale: 0,Height: 65 in, Weight: 285.6 lb, BSA: 2.3, BMI: 47.53 kg/m2 Performance Status ECOG/Karnofsky ? 90% Able to carry on normal activity; minor signs or symptoms of disease. (Date: 04/21/2025) Physical Exam (Paradichlorobenzene Machine Operator Oncology): GENERAL: Pleasant, in no acute distress. CARDIAC: Regular rate and rhythm, S1, S2. ?No murmurs. ? RESPIRATORY: Nonlabored. Lungs are clear to auscultation bilaterally. ABDOMEN: Soft and nontender. ?Very well-healed laparoscopic incisions PELVIC:?Very well-healed vaginal cuff?with 3 remaining palpable sutures with no induration. EXTREMITIES: No edema. Moves extremities without difficulty. DERM: No petechiae, rashes, or bruising. NEURO: The patient is alert and oriented.? Laboratory Data: CBC Lab Results 05/11/2025 05/02/2025 04/21/2025 03/23/2025 03/07/20 25 03/03/2025 CBC WBC x 10^3/uL 11.9 (H) 2.6 (L) 9.5 (H) RBC x 10^6/uL 4.38 4.08 4.63 NRBC % /100 wbc 0.0 0.0 0.0 HGB g/dL 13.1 12.4 13.9 HCT % 39.0 36.6 41.1 MCV fL 89.0 89.7 88.8 MCH pg 29.9 30.4 30.0 MCHC g/dL 33.6 33.9 33.8 RDW % 13.40 12.40 12.70 PLT x 10^3/uL 292 223 273 MPV fL 9.3 (L) 9.9 9.8 Luis Angel % 70.7 29.0 (L) 74.3 (H) LY % 18.3 44.6 (H) 16.7 MO % 6.1 19.8 (H) 5.8 (L) EO % 2.2 5.4 2.5 IG % 2.0 (H) 0.0 0.3 Luis Angel # (ANC) x 10^3/uL 8.4 (H) 0.8 (L) 7.0 (H) BA % 0.7 1.2 0.4 MO # x 10^3/uL 0.7 0.5 0.6 EO # x 10^3/uL 0.3 0.1 0.2 BA # x 10^3/uL 0.1 0.0 0.0 IG # x 10^3/uL 0.24 (H) 0.00 0.03 LY # x 10^3/uL 2.2 1.2 1.6 CMP Lab Results 05/11/2025 05/02/2025 04/21/2025 03/23/2025 03/07/2003/03/2025 Chemistries Glucose mg/dL 106 (H) BUN mg/dL 24.0 (H) Creatinine mg/dL 1.00 Creatinine, iSTAT mg/dL 0.9 1.0 Sodium mmol/L 140 Potassium mmol/L 4.8 Chloride mmol/L 107 CO2 mmol/L 25 Calcium mg/dL 9.4 Albumin g/dL 4.2 Total protein g/dL 7.9 Bilirubin, total mg/dL 0.4 Alkaline phosphatase U/L 89 AST/SGOT U/L 28 ALT/SGPT U/L 20 GFR estimate mL/min/1.73m2 70.6 62.2; 62.2 Magnesium, mg/dL 2.1 Lab Results 05/11/2025 05/02/2025 04/21/2025 03/23/2025 03/07/2003/03/2025 Tumor Markers CA 125 U/mL 10.80 Imaging: As documented above? Problems: * Primary serous adenocarcinoma of endometrium * Malignant neoplasm of endometrium of corpus uteri (disorder) * Serous carcinoma of body of uterus Assessment & Plan (Paradichlorobenzene Machine Operator Oncology): Ngoc Green is a?64-year-old female, recently diagnosed with?stage IC high-grade serous of the endometrium, p53 positive?with positive washings. She is now s/p robotic assisted total laparoscopic hysterectomy?it is currently undergoing adjuvant?treatment in the form of systemic chemotherapy. Dr. Barnett is recommending 6 q. 21-day cycles?of carboplatin, paclitaxel* She is so far tolerating chemotherapy reasonably well * Cycle 2 labs well within the normal range. ?She is cleared for treatment tomorrow. Toxicities: 1) Neuropathy:?She had?numbness and tingling?in hands and feet,?but this is past now.? We discussed using Clyo therapy?in the form of ice mittens and booties. ?She has ordered these from [facility]?and will bring them tomorrow for treatment.? If still with issues after cycle 2, will reduce dose. 2) Myalgia:?She had very significant foot and leg pain?starting 48 hours after cycle 1.? This is better now. ?We discussed utilizing Claritin?on day 1 of cycle 2?as this can be helpful. Postoperatively, she is healing quite well. ?Vaginal cuff is well-healed and she may resume?swimming and bathing. ?I do advise that she hold off another 2 weeks to engage in sexual activity,as she does have sutures still present.? Call office with any pain or bleeding with intercourse. Pain Care Management: Pain Scale: 0 Patient Care needs: Depressions Status: Was screened; Outcome positive: No; Screening Date: 05/11/2025; Screening Tool:PRIME MD-PHQ2 Psycho-Social PHQ-9 Follow-up Plan (if applicable): Smoking Status: Smoking Tobacco : Never smoker; Smokeless Tobacco : Never used smokeless tobacco; Vaping : Never vaped Ngoc Trejo APRN, CNP Copy to: Reina YA FAX Electronically signed by Ngoc Trejo APRN, CNP 05/11/2025 14:54 CDT * FELTER TENNIS BALLS Follow-Up GYNECOLOGIC ONCOLOGY FOLLOW-UP VISIT Patient Name: NGOC GREEN : 1960 Date of Visit: 05/02/2025 Referring Provider: ? 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 P53 positive, positive washings. She's been experiencing postmenopausal bleeding spotting for past year or so . Had prolonged episode of bleeding end of December,. No abdominal or pelvic pain. Occasional pelvic cramping.? 01/27/25 Ultrasound? FINDINGS: Sonographic images demonstrate a normal size [...] Is present measuring 2.4 cm. 02/06/25: Endometrial biopsy:? FINDINGS: 1. Endometrial carcinoma: a. Histologic classification: [...] at excision 03/03/25: CA125 = 10.8 U/mL 03/23/25:?Robotic assisted total laparoscopic hysterectomy, bilateral salpingo-oophorectomy,?bilateral pelvic sentinel lymph node?dissection, infracolic omentectomy, pelvic washings, cystoscopy. 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 Genetic Testing (Paradichlorobenzene Machine Operator Oncology): MMRp Interval History (Paradichlorobenzene Machine Operator Oncology) She is accompanied by her daughter?and granddaughter today. ?She states?her biggest issueswith chemotherapy were?a rash?(which is now gone)?pain in her legs, and mild numbness.?She had no nausea or vomiting. ?A little bit of constipation, and no other issues. ?She feelsmuch better today.? No fever or chills or shortness of breath. Review of Systems: A complete 14-point review of systems is negative except as noted?in the above history of present illness. 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 Menarche: 12 years old? P2002 x 2? Last pap:?Negative for intraepithelial lesion or malignancy?HPV negative 12/05/24 Allergies: No known medication allergies Medications: * Amlodipine Oral 2.5 mg tablet Take once daily * Tylenol (Acetaminophen Oral) prn * Claritin (Loratadine Oral) prn * Olanzapine Oral 2.5 mg tablet 2.5 mg orally every day at bedtime. Take for 4 days starting Day 1 ofchemotherapy for nausea. * Prochlorperazine Oral 10 mg tablet 1 tablet orally every 6 hours as needed for nausea. Family History: No family history of ovarian, uterine, colon cancer? Maternal aunt - breast? 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 Nonsmoker. No alcohol use. Lives with .? Health Maintenance: Mammogram- 2024 BIRADS 1? Vital Signs: Blood pressure: 118/70, Pulse: 78, Temperature: 97 F, Respirations: 16, O2 sat: 98%, Pain Scale: 0,Height: 65 in, Weight: 283.8 lb, BSA: 2.3, BMI: 47.23 kg/m2 Performance Status ECOG/Karnofsky ? 90% Able to carry on normal activity; minor signs or symptoms of disease. (Date: 04/21/2025) Physical Exam (Paradichlorobenzene Machine Operator Oncology): GENERAL: Pleasant, in no acute distress. HEENT: Normocephalic, atraumatic. PERRL. Sclera are white. ?Conjunctivae are clear. ? NECK: Supple. No adenopathy. ?Trachea is midline. CARDIAC: Regular rate and rhythm, S1, S2. ?No murmurs. ? RESPIRATORY: Nonlabored. Lungs are clear to auscultation bilaterally. ABDOMEN: Soft and nontender. ?Bowel sounds are present. ? EXTREMITIES: No edema. Moves extremities without difficulty. DERM: No petechiae, rashes, or bruising. NEURO: The patient is alert and oriented.? Laboratory Data: CBC Lab Results 05/02/2025 04/21/2025 03/07/2025 03/03/202511/13 CBC WBC x 10^3/uL 2.6 (L) 9.5 (H) RBC x 10^6/uL 4.08 4.63 NRBC % /100 wbc 0.0 0.0 HGB g/dL 12.4 13.9 HCT % 36.6 41.1 MCV fL 89.7 88.8 MCH pg 30.4 30.0 MCHC g/dL 33.9 33.8 RDW % 12.40 12.70 PLT x 10^3/uL 223 273 MPV fL 9.9 9.8 Luis Angel % 29.0 (L) 74.3 (H) LY % 44.6 (H) 16.7 MO % 19.8 (H) 5.8 (L) EO % 5.4 2.5 IG % 0.0 0.3 Luis Angel # (ANC) x 10^3/uL 0.8 (L) 7.0 (H) BA % 1.2 0.4 MO # x 10^3/uL 0.5 0.6 EO # x 10^3/uL 0.1 0.2 BA # x 10^3/uL 0.0 0.0 IG # x 10^3/uL 0.00 0.03 LY # x 10^3/uL 1.2 1.6 CMP Lab Results 05/02/2025 04/21/2025 03/07/2025 03/03/202511/13 Chemistries Glucose mg/dL 106 (H) BUN mg/dL 24.0 (H) Creatinine mg/dL 1.00 Creatinine, iSTAT mg/dL 1.0 Sodium mmol/L 140 Potassium mmol/L 4.8 Chloride mmol/L 107 CO2 mmol/L 25 Calcium mg/dL 9.4 Albumin g/dL 4.2 Total protein g/dL 7.9 Bilirubin, total mg/dL 0.4 Alkaline phosphatase U/L 89 AST/SGOT U/L 28 ALT/SGPT U/L 20 GFR estimate mL/min/1.73m2 62.2; 62.2 Magnesium, mg/dL 2.1 Lab Results 05/02/2025 04/21/2025 03/07/2025 03/03/202511/13 Tumor Markers CA 125 U/mL 10.80 Imaging: As documented above? Problems: * Primary serous adenocarcinoma of endometrium * Malignant neoplasm of endometrium of corpus uteri (disorder) * Serous carcinoma of body of uterus Assessment & Plan (Paradichlorobenz[employer] Machine Operator Oncology): Ngoc Green is a?64-year-old female, recently diagnosed with?stage IC high-grade serous of the endometrium, p53 positive?with positive washings. She is now s/p robotic assisted total laparoscopic hysterectomy?it is currently undergoing adjuvant?treatment in the form of systemic chemotherapy. Dr. Barnett is recommending 6 q. 21-day cycles?of carboplatin, paclitaxel* She is so far tolerating chemotherapy reasonably well * Francisco labs show?decreased white blood cell count,?which we reviewed in detail. * Return to clinic?for cycle 2 next week. Toxicities: 1) Neuropathy:?She had?numbness and tingling?in hands and feet,?but this is past now.? We discussed using Clyo therapy?in the form of ice mittens and booties. ?She has ordered these from [employer].? We discussed?freezing them the night before, and making sure they stay cold on her hands throughout Taxol infusion.? If still with issues after cycle 2, will reduce dose. 2) Myalgia:?She had very significant foot and leg pain?starting 48 hours after cycle 1.? This is better now. ?We discussed utilizing Claritin?on day 1 of cycle 2?as this can be helpful. Pain Care Management: Pain Scale: 0 Patient Care needs: Depressions Status: Was screened; Outcome positive: No; Screening Date: 05/02/2025; Screening Tool: MD-PHQ2 Psycho-Social PHQ-9 Follow-up Plan (if applicable): Smoking Status: Smoking Tobacco : Never smoker; Smokeless Tobacco : Never used smokeless tobacco; Vaping : Never vaped Ngoc Trejo APRN, CNP Copy to: Reina YA FAX Electronically signed by Ngoc Trejo APRN, CNP 05/02/2025 12:07 CDT * FELTER TENNIS BALLS Follow-Up GYNECOLOGIC ONCOLOGY FOLLOW-UP VISIT Patient Name: NGOC GREEN : 1960 Date of Visit: 04/21/2025 Referring Provider: ? 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 P53 positive, positive washings. She's been experiencing postmenopausal bleeding spotting for past year or so . Had prolonged episode of bleeding end of December,. No abdominal or pelvic pain. Occasional pelvic cramping.? 01/27/25 Ultrasound? FINDINGS: Sonographic images demonstrate a normal size [...] Is present measuring 2.4 cm. 02/06/25: Endometrial biopsy:? FINDINGS: 1. Endometrial carcinoma: a. Histologic classification: [...] Repeat HER2 testing is recommended at excision 03/23/25:?Robotic assisted total laparoscopic hysterectomy, bilateral salpingo-oophorectomy,?bilateral pelvic sentinel lymph node?dissection, infracolic omentectomy, pelvic washings, cystoscopy. 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 CA 125 = Genetic Testing (Paradichlor[employer] Machine Operator Oncology): MMRp Interval History (Paradichlorobenzene Machine Operator Oncology) Ngoc presents to clinic today for routine follow up. She was last seen in the clinic for a visit on04/07/2025. She is going to start chemotherapy today. She had teaching. She has antiemetics at home which we reviewed. We talked about the common toxicities of treatment.? Review of Systems: A complete 14-point review of systems is negative except as noted?in the above history of present illness. 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 Menarche: 12 years old? P2002 x 2? Last pap:?Negative for intraepithelial lesion or malignancy?HPV negative 12/05/24 Allergies: No known medication allergies Medications: * Tylenol (Acetaminophen Oral) prn * Olanzapine Oral 2.5 mg tablet 2.5 mg orally every day at bedtime. Take for 4 days starting Day 1 ofchemotherapy for nausea. * Amlodipine Oral 2.5 mg tablet Take once daily * Prochlorperazine Oral 10 mg tablet 1 tablet orally every 6 hours as needed for nausea. Family History: No family history of ovarian, uterine, colon cancer? Maternal aunt - breast? 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 Nonsmoker. No alcohol use. Lives with .? Health Maintenance: Mammogram- 2024 BIRADS 1? Vital Signs: Blood pressure: 132/61, Sitting, R arm, Large, Pulse: 78, Temperature: 97.3 F, Respirations: 16, O2sat: 97%, At Rest, Room Air, Pain Scale: 0, Height: 65 in, Weight: 284.4 lb, BSA: 2.3, BMI: 47.33 kg/m2 Physical Exam (Parad[employer] Machine Operator Oncology): GENERAL: Pleasant, in no acute distress. HEENT: Normocephalic, atraumatic. PERRL. Sclera are white. ?Conjunctivae are clear. ? NECK: Supple. No adenopathy. ?Trachea is midline. CARDIAC: Regular rate and rhythm, S1, S2. ?No murmurs. ? RESPIRATORY: Nonlabored. Lungs are clear to auscultation bilaterally. ABDOMEN: Soft and nontender. ?Bowel sounds are present. ? EXTREMITIES: No edema. Moves extremities without difficulty. DERM: No petechiae, rashes, or bruising. NEURO: The patient is alert and oriented.? Laboratory Data: CBC Lab Results 04/21/2025 03/07/2025 03/03/2025 12/05/2024 CBC WBC x 10^3/uL 9.5 (H) RBC x 10^6/uL 4.63 NRBC % /100 wbc 0.0 HGB g/dL 13.9 HCT % 41.1 MCV fL 88.8 MCH pg 30.0 MCHC g/dL 33.8 RDW % 12.70 PLT x 10^3/uL 273 MPV fL 9.8 Luis Angel % 74.3 (H) LY % 16.7 MO % 5.8 (L) EO % 2.5 IG % 0.3 Luis Angel # (ANC) x 10^3/uL 7.0 (H) BA % 0.4 MO # x 10^3/uL 0.6 EO # x 10^3/uL 0.2 BA # x 10^3/uL 0.0 IG # x 10^3/uL 0.03 LY # x 10^3/uL 1.6 CMP Lab Results 04/21/2025 03/07/2025 03/03/2025 12/05/2024 Chemistries Creatinine, iSTAT mg/dL 1.0 GFR estimate mL/min/1.73m2 62.2 Lab Results 04/21/2025 03/07/2025 03/03/2025 12/05/2024 Tumor Markers CA 125 U/mL 10.80 Imaging: As documented above? Problems: * Primary serous adenocarcinoma of endometrium * Malignant neoplasm of endometrium of corpus uteri (disorder) * Serous carcinoma of body of uterus Assessment & Plan (Parad[employer] Machine Operator Oncology): Ngoc Green is a?64-year-old [facility] She is now 2 weeks status post?robotic assisted total laparoscopic hysterectomy, bilateral salpingo-oophorectomy?with final pathology showing stage IC high-grade serous of the endometrium, p53 positive?with positive washings. Dr. Barnett along with NCCN guidelines recommend adjuvant?treatment in the form of systemic chemotherapy. She is recommending 6 q. 21-day cycles?of carboplatin, paclitaxel* C1D1 chemotherapy today * Antiemetics reviewed * Toxicity check in 1 week with labs * RTC in 3 weeks with CBC, CMP, icreat, magnesium, CA125, post op visit and cycle 2 chemotherapy Pain Care Management: Pain Scale: 0 Patient Care needs: Depressions Status: Was not screened Reason: Patient Refused; Screening Date: 04/21/2025 Psycho-Social PHQ-9 Follow-up Plan (if applicable): Smoking Status: Smoking Tobacco : Never smoker; Smokeless Tobacco : Never used smokeless tobacco; Vaping : Never vaped Otoniel Mai APRN, CNP Copy to: Reina YA FAX Seven Bernal PA-C Electronically signed by Otoniel Mai APRN, CNP 04/21/2025 09:04 CDT * FELTER TENNIS BALLS Follow-Up GYNECOLOGIC ONCOLOGY FOLLOW-UP VISIT Patient Name: NGOC GREEN : 1960 Date of Visit: 04/07/2025 Referring Provider: ? 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 P53 positive, positive washings. She's been experiencing postmenopausal bleeding spotting for past year or so . Had prolonged episode of bleeding end of December,. No abdominal or pelvic pain. Occasional pelvic cramping.? 01/27/25 Ultrasound? FINDINGS: Sonographic images demonstrate a normal size [...] Is present measuring 2.4 cm. 02/06/25: Endometrial biopsy:? FINDINGS: 1. Endometrial carcinoma: a. Histologic classification: [...] Repeat HER2 testing is recommended at excision 03/23/25:?Robotic assisted total laparoscopic hysterectomy, bilateral salpingo-oophorectomy,?bilateral pelvic sentinel lymph node?dissection, infracolic omentectomy, pelvic washings, cystoscopy. 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 ?No longer with any abdominal pain. Denies fever, chest pain, shortness of breath, leg pain or leg swelling. ?Bowel bladder habits are back to normal. ?No vaginal bleeding since the surgery. Review of Systems: A complete 14-point review of systems is negative except as noted?in the above history of present illness. 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 Menarche: 12 years old? P2002 x 2? Last pap:?Negative for intraepithelial lesion or malignancy?HPV negative 12/05/24 Allergies: No known medication allergies Medications: * Lisinopril Oral 10 mg tablet 1 tablet orally daily * Olanzapine Oral 2.5 mg tablet 2.5 mg orally every day at bedtime. Take for 4 days starting Day 1 ofchemotherapy for nausea. * Tylenol (Acetaminophen Oral) prn * Benadryl (Diphenhydramine Oral) mg PRN * Prochlorperazine Oral 10 mg tablet 1 tablet orally every 6 hours as needed for nausea. Family History: No family history of ovarian, uterine, colon cancer? Maternal aunt - breast? 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 Nonsmoker. No alcohol use. Lives with .? Health Maintenance: Mammogram- 2024 BIRADS 1? Vital Signs: Blood pressure: 128/78, Sitting, R arm, Wrist, Pulse: 90, Temperature: 98.2 F, Respirations: 16, O2sat: 98%, At Rest, Room Air, Pain Scale: 0, Height: 65 in, Weight: 284.2 lb, BSA: 2.3, BMI: 47.29 kg/m2 Performance Status ECOG/Karnofsky ? Physical Exam (Paradichlorobenzene Machine Operator Oncology): General: appears well and in no apparent distress, alert and oriented x3 Abdomen:?5 very well-healed 1 cm incisions?with no remaining glue overlying, fading ecchymosis. Lower extremities: no edema in bilateral lower extremities, non-tender to palpation? Laboratory Data: Lab Results 03/07/2025 03/03/2025 12/05/2024 Tumor Markers CA 125 U/mL 10.80 Imaging: As documented above? Problems: * Primary serous adenocarcinoma of endometrium * Malignant neoplasm of endometrium of corpus uteri (disorder) * Serous carcinoma of body of uterus Assessment & Plan (Paradichlorobenzene Machine Operator Oncology): Ngoc Green is a?64-year-old female referred to [facility] with serous endometrial cancer She is now 2 weeks status post?robotic assisted total laparoscopic hysterectomy, bilateral salpingo-oophorectomy?with final pathology showing stage IC high-grade serous of the endometrium, p53 positive?with positive washings. Dr. Barnett along with NCCN guidelines recommend adjuvant?treatment in the form of systemic chemotherapy. She is recommending 6 q. 21-day cycles?of carboplatin, paclitaxel She is already scheduled for chemo teach next week with treatment starting?mid April. Surgical report and pathology report were printed, reviewed with patient in detail, and given to patient to take home. Abdominal incisions evaluated today and appear to be healing well.? Discussed signs and symptoms of PE, DVT, infection. ?Patient advised to call office at any time with any questions or concerns. Walk as often as possible, but avoid heavy lifting. ? Pt advised no swimming, bathing in bathtub or penetrative sexual intercourse until after next post op visit Return to clinic in 4 weeks for 6-week postop, during which she will have an internal exam to evaluate vaginal sutures. Pain Care Management: Pain Scale: 0 Patient Care needs: Depressions Status: Was not screened Reason: Patient Refused; Screening Date: 04/07/2025 Psycho-Social PHQ-9 Follow-up Plan (if applicable): Smoking Status: Smoking Tobacco : Never smoker; Smokeless Tobacco : Never used smokeless tobacco; Vaping : Never vaped Ngoc Trejo APRN, CNP Copy to: Reina YA FAX Electronically signed by Ngoc Trejo APRN, CNP 04/07/2025 14:37 CDT * FELTER TENNIS BALLS Onc Consult Note GYNECOLOGIC ONCOLOGY CONSULT Patient Name: NGOC GREEN Patient : 1960 Patient Referring Physician: ? Primary GYNOncologist: Jana Barnett (Gynecological/Oncology) Date of Service: 03/03/2025 Reason for Consult: Serous endometrial cancer? History of Present Illness (Paradichlorobenzene Machine Operator Oncology): Ngoc Green is a?64-year-old female referred to [facility] with serous endometrial cancer She's been experiencing postmenopausal bleeding spotting for past year or so . Had prolonged episode of bleeding end of December. No abdominal or pelvic pain. Occasional pelvic cramping.? 01/27/25 Ultrasound? FINDINGS: Sonographic images demonstrate a normal size [...] uterine fibroid Is present measuring 2.4 cm. Final Diagnosis 02/06/25 ENDOMETRIUM, BIOPSY: 1. Endometrial carcinoma: a. Histologic classification: - Subtype: Serous predominant carcinoma with focal clear cell carcinoma component - Grade: High grade by definition b. Molecular classification: p53 abnormal 2. Ancillary testing: a. DNA mismatch repair enzyme immunohistochemistry: - Proficient - MLH1, PMS2, MSH2, MSH6 normal expression b. p53 immunohistochemistry: Abnormally overexpressed mutant pattern c. POLE mutation: No mutation detected d. HER2 by IHC: Equivocal ( 2+ by manual morphometry) HER2 by FISH: Negative HER2/CEP17 ratio: 1.07 HER2 signals/cell: 2.36 CEP17 signals/cell: 2.20 Repeat HER2 testing is recommended at excision Genetic Testing (Paradichlorobenzene Machine Operator Oncology): MMRp Review of Systems: A complete 14-point review of systems is negative except as noted in the above history of present illness. Past Medical History: Hypertension Surgical History: Knee replacement - bilateral? 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 Menarche: 12 years old? P2002 x 2? Last pap:?Negative for intraepithelial lesion or malignancy?HPV negative 12/05/24 Allergies# No known medication allergies Medications: * Tylenol (Acetaminophen Oral) prn * Lisinopril Oral 10 mg tablet 1 tablet orally daily Family History: No family history of ovarian, uterine, colon cancer? Maternal aunt - breast? 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 Nonsmoker. No alcohol use. Lives with .? Health Maintenance: Mammogram- 2024 BIRADS 1? Vital Signs: Blood pressure: 132/94, Pulse: 70, Temperature: 97.2 F, Respirations: 16, O2 sat: 98%, Pain Scale: 0, Height: 65 in, Weight: 285.2 lb, BSA: 2.3, BMI: 47.46 kg/m2 Physical Exam (Paradichlorobenzene Machine Operator Oncology): General: appears well and in no apparent distress, alert and oriented x3 HEENT: sclerae white, extraocular movements intact, no cervical or supraclavicular lymphadenopathy? Respiratory: ?normal respiratory effort Heart: peripheral perfusion normal Abdomen: soft, nondistended, nontender to palpation and without masses. no rebound or guarding.? Lower extremities: no edema in bilateral lower extremities, non-tender to palpation? Neuro: CNII-XII grossly intact, moving all extremities without difficulty? Psych: appropriate mood and affect? Pelvic: normal external genitalia. vagina without nodularity or lesions, cervix normal in appearance, physiologic discharge. no inguinofemoral lymphadenopathy?Bimanual: no adnexal masses or tenderness palpated on exam Rectal exam: deferred? Laboratory Data: As documented above ? Imaging: As documented above? Problems: * Serous carcinoma of body of uterus Assessment & Plan (Paradichlorobenzene Machine Operator Oncology): Ngoc Green is a?64-year-old female [facility] I reviewed all findings from today's visit including previous imaging and biopsy results. Based on these findings, I recommended that she undergo robot assisted total laparoscopic hysterectomy, bilateral salpingo-oophorectomy and sentinel node dissection with possible pelvic and para-aortic lymphadenectomy based on intraoperative findings. Reviewed the need for imaging to rule out metastatic disease.? We reviewed the risks of surgery including pain, infection, bleeding, damage to surrounding structures or organs including bladder, ureters, bowel, blood vessels, or nerves, need for laparotomy or open incision to complete the procedure, port site or incision hernia, vaginal cuff dehiscence. ?Also reviewed the risk of need for additional procedures or blood transfusion if complications. Blood transfusions carry additional risks of transfusion reactions, damaged to lung/kidneys, fevers, . Medical risks of surgery were reviewed including anesthesia-related complications, pneumonia and blood clot/pulmonary embolism, which can be fatal.? We also reviewed the likely need for adjuvant therapy (chemotherapy +/- radiation) depending on thepathology results from surgery. All questions were answered.? * CA-125 drawn at today's visit * CT CAP with IV contrast ordered at today's visit? * Plan for robot-assisted total laparoscopic hysterectomy, bilateral salpingo- oophorectomy, bilateralpelvic sentinel lymph node dissection, infracolic omentectomy, pelvic washings, cystoscopy * Surgical consent to be signed preoperatively day of surgery. Procedure was reviewed at today's visit including risks, benefits and alternatives * PCP Clearance: Labs and EKG PRN to be ordered by PCP? * Preoperative orders: Type and Screen, Heparin 5000U SQ, Ancef + Flagyl I spent 30 minutes reviewing the patient's chart (outside clinic and hospital documentation, labs and imaging) before seeing the patient today. I spent 30 minutes face to face with the patient, whichwas spent interviewing, counseling and examining the patient.? Jana Barnett MD ? Gynecologic Oncology - [facility]? Pain Care Management: Pain Scale: 0 Patient Care needs: Depressions Status: Not recorded on visit Smoking Status: Smoking Tobacco : Never smoker; Smokeless Tobacco : Never used smokeless tobacco; Vaping : Never vaped Jana Barnett MD Copy to: Reina YA ? Electronically signed by Jana Barnett MD 03/03/2025 14:05 CDT
--- OUTSIDE RECORDS SUMMARY | 2025-06-19 18:00 | XMS_ITS | CCD ---
Author Name Interface, [id number] lity Address [address] [facility] [address] [address] [facility] On[facility] Address [address] [address] [address] Care Team Providers Care Corporate Driver Name Role Phone Ericka AARON, Jana Flores [...] using the CKD-EPI equation. FINAL Ngoc Trejo [facility] , [address] [facility] 210 [facility] [id number] 0 06/02 iSTAT creat inine panel Creat inine , iSTAT mg/dl 0.6 1.3 1.0 FINAL Ngoc Trejo [facility] , [address] [facility] 210 [facility] [id number] 0 06/02 CMP Alkal ine phosp hatas e U/L 36.0 125.0 102 FINAL Ngoc Czel * [facility] , [address] [facility] [id number] 06/02 CMP ALT/S GPT U/L 0.0 34.0 25 FINAL Ngoc Czel * [facility] , [address] [facility] [id number] 0 06/02 CMP Calci um mg/dL 8.4 10.2 9.5 FINAL Ngoc Czel * [facility] , [address] [facility] [id number] 0 06/02 CMP CO2 mmol/L 22.0 30.0 [...] hour stability window. FINAL Ngoc Czel * [facility] , [address] [facility] [id number] 0 06/02 CMP Gluco se mg/dL 74.0 100.0 111 High FINAL Ngoc Czel * [facility] , [address] [facility] [id number] 0 06/02 CMP Chlor dorie mmol/L 96.0 107.0 108 High FINAL Ngoc Czel * [facility] , [address] [facility] [id number] 0 06/02 CMP Total prote in g/dL 6.3 8.2 7.6 FINAL Ngoc Czel * [facility] , [address] [facility] [id number] 06/02 CMP BUN mg/dL 7.0 17.0 24.0 High FINAL Ngoc Czel * [facility] , [address] [facility] [id number] 0 06/02 CMP Creat inine mg/dL 0.66 1.25 1.00 FINAL Ngoc Czel * [facility] , [address] [facility] [id number] 0 06/02 CMP AST/S GOT U/L 14.0 36.0 31 FINAL Ngoc Czel * [facility] , [address] [id number] 0 06/02 CMP Album in g/dL 3.5 5.0 4.1 FINAL Ngoc Czel * [facility] , [address] [id number] 0 06/02 CMP Bilir ubin, total mg/dL 0.2 1.3 <0.1 Low FINAL Ngoc Czel * [facility] , [address] [id number] 0 06/02 CMP Sodiu m mmol/L 137.0 145.0 140 FINAL Ngoc Czel * [facility] , [address] [id number] 0 06/02 CMP Potas sium mmol/L 3.5 5.1 4.7 FINAL Ngoc Czel * [facility] , [address] [id number] 0 05/11 Magne sium, mg/dL mg/dL 1.6 2.3 2.1 FINAL Otoniel Unglaub * [facility] , [address] [id number] 0 03/23 [facility] other lab See manager assisted living d 06/02 CBC w/ auto diff Luis Angel # (ANC) K/uL 1.6 6.6 6.3 FINAL Ngoc Trejo [place] [facility] [place] [facility] , [address] [facility] [address] [place] [id number] 0 06/02 CBC w/ auto diff IG % % 0.0 0.5 1.1 High FINAL Ngocallegra Trejo [place] [facility] [place] [facility] , [address] [facility] 210 [facility] [id number] 0 06/02 CBC w/ auto diff MO # K/uL 0.2 1.3 0.6 FINAL Ngocallegra Trejo [place] [facility] [place] [facility] , [address] [place] [address] 210 [facility] [id number] 0 06/02 CBC w/ auto diff MCV fL 80.0 104.0 90.0 FINAL Ngocallegra Trejo [place] [facility] [place] [facility] , [address] [facility] 210 [place] [id number] 0 06/02 CBC w/ auto diff IG # K/uL 0.0 0.03 0.10 High FINAL Ngocallegra Trejo [place] [facility] [place] [facility] , [address] [facility] 210 [facility] [id number] 0 06/02 CBC w/ auto diff MO % % 6.0 15.0 6.1 FINAL Ngocallegra Trejo [place] [facility] [place] [facility] , [address] [facility] 210 [place] [id number] 0 06/02 CBC w/ auto diff EO # K/uL 0.0 0.6 0.1 FINAL Ngocallegra Trejo [place] [facility] [place] [facility] , [address] [facility] 210 [place] [id number] 0 06/02 CBC w/ auto diff EO % % 0.0 7.0 1.1 FINAL Ngocallegra Trejo [place] [facility] [place] [facility] , [address] [facility] 210 [place] [id number] 0 06/02 CBC w/ auto diff RBC M/uL 3.9 5.1 3.99 FINAL Ngoc [place] [facility] [place] [facility] , [address] [facility] 210 [place] [id number] 0 06/02 CBC w/ auto diff MPV fL 9.5 13.4 9.3 Low FINAL Ngoc Trejo [place] [facility] [place] [facility] , [address] [place] [address] 210 [place] [id number] 0 06/02 CBC w/ auto diff WBC K/uL 3.0 8.9 9.2 High FINAL Ngoc Trejo [place] [facility] [place] [facility] , [address] [place] [address] 210 [place] [id number] 0 06/02 CBC w/ auto diff PLT K/uL 113.0 364.0 283 FINAL Ngoc Trejo [place] [facility] [place] [facility] , [address] [place] [address] 210 [place] [id number] 0 06/02 CBC w/ auto diff BA % % 0.0 2.0 0.5 FINAL Ngoc [place] [facility] [place] [facility] , [address] [place] [address] 210 [place] [id number] 0 06/02 CBC w/ auto diff BA # K/uL 0.0 0.2 0.1 FINAL Ngoc [place] [facility] [place] [facility] , [address] [place] [address] [address] [place] [id number] 0 06/02 CBC w/ auto diff HGB g/dL 11.3 15.2 12.1 FINAL Ngocallegra Trejo [place] [facility] [place] [facility] , [address] [place] [address] 210 [place] [phone] 0 06/02 CBC w/ auto diff RDW % 11.4 16.1 14.60 FINAL Ngoc Trejo [place] [facility] [place] [facility] , [address] [place] [address] 210 [place] [id number] 0 06/02 CBC w/ auto diff LY % % 14.0 41.0 22.8 FINAL Ngoc Trejo [facility] , [address] [facility] 210 [facility] [id number] 0 06/02 CBC w/ auto diff LY # K/uL 0.4 3.6 2.1 FINAL Ngoc Trejo [facility] , [address] [place] [address] 210 [facility] [id number] 0 06/02 CBC w/ auto diff MCH pg 26.0 35.0 30.3 FINAL Ngoc Trejo [facility] , [address] [place] [address] 210 [facility] [id number] 0 06/02 CBC w/ auto diff MCHC g/dL 30.0 35.0 33.7 FINAL Ngocallegra Trejo [facility] , [address] [place] [address] 210 [facility] [id number] 0 06/02 CBC w/ auto diff NRBC % #/100W BC 0.0 0.2 0.0 FINAL Ngoc Trejo [facility] , [address] [place] [address] 210 [facility] [id number] 0 06/02 CBC w/ auto diff HCT % 35.0 48.0 35.9 FINAL Ngocallegra Trejo [facility] , [address] [place] [address] 210 [facility] [id number] 0 06/02 CBC w/ auto diff Luis Angel % % 43.0 74.0 68.4 FINAL [facility] , [address] [place] [address] [address] [facility] [id number] 0 06/02 CA 125 panel CA 125 U/ML 0.0 35.0 8.30 Test performed at [facility] on a [employer]0 Immunoass ay Analyzer that uses an immunomet thai immunoass ay technique . Patient testing should not be performed using multiple cristhian miranda due to analytica l variation seen between test cristhian miranda. FINAL Ngoc Trejo * [facility] , [address] [facility] [address] [facility] [id number] Medications Administered Date Name Route Dose Frequency Instructions Start Date End Date Status 06/02/2025 carboplatin 10 MG/ML Injectable Solution intravenously 835.0 mg once Mix in D5W or NS.Carboplatin is an irritant. 06/02/2025 06/02/2025 inactive 06/02/2025 paclitaxel 6 MG/ML Injectable Solution intravenously 360.0 mg once Dilute in 250-500 mL NS. Final product concentration must be 0.3-1.2 mg/mL. Administer using Zjn-DEHR-xlquvb amairani equipment and through an in-line 0.22 [...] concentration must be 0.3-1.2 mg/mL. Administer using Lig-UUNK-labizy amairani equipment and through an in-line 0.22 [...] concentration must be 0.3-1.2 mg/mL. Administer using Zro-QEEM-ypuevs amairani equipment and through an in-line 0.22 [...] Oral Take 2 times daily inactive 04/07 Calciu m-Chol ecalci ferol Oral 600 mg-10 mcg (400 unit) Take 2 tablets once daily inactive 03/03 Lisino pril Oral orally 1.0 tablet daily inactive 04/07 Cetiri zine Oral Take once daily inactive 04/07 Allopu rinol Oral Take once daily inactive 04/07 Mirabe gron Oral ER Suspen carol Take once daily inactive 04/07 Potass ium Chlori de Oral ER Tab take once daily inactive 04/07 Rosuva statin Calciu m Oral take once daily inactive 04/07 Levoth yroxin e Oral Take once daily inactive 04/07 Gabape ntin Oral Take 3 times daily inactive 04/07 Docusa te Sodium Oral Take 2 times daily inactive 04/07 Metfor min Oral Take once daily inactive 04/07 Amlodi pine Oral Take once daily active 04/07 Cholec alcife rol Oral take once daily inactive 04/07 Multiv itamin s Oral Tablet Gummy's inactive 04/07 Coenzy me Q10 Oral Take once daily inactive 04/07 colchi cine Oral 0.6 mg Take once daily inactive 04/07 Diphen hydram ine Oral PRN inactive 04/07 Omepra zole Oral Delaye d Releas e Capsul e Take once daily inactive 04/07 Metopr olol Oral (Tartr ate) take once daily inactive 04/07 Acetam inophe n Oral Take 3 times daily inactive 04/07 Tizani dine Oral take 2 times daily inactive 04/07 Flutic asone Nasal Meyers Chuck 50 mcg/ac tuatio n take PRN inactive 04/07 Diclof enac Topica l Gel 1 % PRN inactive 03/03 Acetam inophe n Oral prn active 04/07 Albute rol HFA Inhale r 90 mcg/ac tuatio n Take PRN inactive 04/07 Aspiri n Oral Take 2 times daily inactive 04/07 Zonisa mide Oral take 2 capsules once daily at HS inactive 04/07 Psylli um Oral Powder take once daily inactive 05/02 Lorata dine Oral prn active 04/07 Magnes ium Oral Take once daily inactive 03/31 carbop latin 10 MG/ML [...] concentration must be 0.3-1.2 mg/mL. Administer using Kau-IRKE-rhlde ining equipment and through an in-line 0.22 [...] concentration must be 0.3-1.2 mg/mL. Administer using Cfa-CDHW-dteaa ining equipment and through an in-line 0.22 [...] concentration must be 0.3-1.2 mg/mL. Administer using Phs-UUMS-xstdn ining equipment and through an in-line 0.22 [...] follow-up 2 w eeks post op with SENIOR SAFETY SUPPORT MANAGER SALENA Ordered 04/10/2025 Physician Order RTC patient teaching RN P atient Teaching Visit Ordered 04/21/2025 Physician Order RTC WAX ROOM SUPERVISOR/PA and infusion Carbo/Ta xol Ordered 05/02/2025 Physician Order RTC WAX ROOM SUPERVISOR Toxicity check Order ed 05/12/2025 Physician Order RTC WAX ROOM SUPERVISOR/PA and infusion Ca rbo/Taxol and post op with Ngoc/Trang Ordered 06/02/2025 Physician Order RTC WAX ROOM SUPERVISOR/PA and infusion Carbo/Ta xol Ordered 06/19/2025 Physician Order Venous doppler ultrasound of lower extremity, LT U/S LLE to rule out DVT. Patient having pain to LLE behind L knee and L thigh. Please call abnormal results between 8 am and 5 pm to PENNIE Grossmna at [phone]. If after 5 pm, please call abnormal results to [phone] and ask for SENIOR SAFETY SUPPORT MANAGER provider fire control system installer. Ordered 06/23/2025 Physician Order RTC WAX ROOM SUPERVISOR/PA and infusion Carbo/Ta xol Ordered Social History Date Name Value 03/03/2025 Smoking Status Never smoker 05/02/2025 Sex Female Visits Date Type Value 06/23/2025 LAB 15 MIN 06/23/2025 TREATMENT 5 HR 06/23/2025 OV 30 MIN Vital Signs Date Type Value 03/03/2025 Body Temperature 97.20 03/03/2025 Heart Beat 70.00 03/03/2025 BSA 2.30 03/03/2025 BMI 47.46 03/03/2025 Height 65.00 03/03/2025 Weight 285.20 03/03/2025 Pain Scale 0.00 03/03/2025 Intravascular Systolic 132 03/03/2025 Intravascular Diastolic 94 03/03/2025 Oxygen Saturation 98.00 03/03/2025 Respiratory Rate 16.00 04/07/2025 Body Temperature 98.20 04/07/2025 BMI 47.29 04/07/2025 Height 65.00 04/07/2025 Weight 284.20 04/07/2025 BSA 2.30 04/07/2025 Intravascular Systolic 128 04/07/2025 Intravascular Diastolic 78 04/07/2025 Oxygen Saturation 98.00 04/07/2025 Respiratory Rate 16.00 04/07/2025 Heart Beat 90.00 04/07/2025 Pain Scale 0.00 04/21/2025 Oxygen Saturation 97.00 04/21/2025 Body Temperature 97.30 04/21/2025 Heart Beat 78.00 04/21/2025 Respiratory Rate 16.00 04/21/2025 Intravascular Systolic 132 04/21/2025 Intravascular Diastolic 61 04/21/2025 Pain Scale 0.00 04/21/2025 Weight 284.40 04/21/2025 Height 65.00 04/21/2025 BMI 47.33 04/21/2025 BSA 2.30 05/02/2025 Intravascular Systolic 118 05/02/2025 Intravascular Diastolic 70 05/02/2025 Oxygen Saturation 98.00 05/02/2025 Body Temperature 97.00 05/02/2025 Respiratory Rate 16.00 05/02/2025 Pain Scale 0.00 05/02/2025 Weight 283.80 05/02/2025 Height 65.00 05/02/2025 BMI 47.23 05/02/2025 BSA 2.30 05/02/2025 Heart Beat 78.00 05/11/2025 Intravascular Systolic 118 05/11/2025 Intravascular Diastolic 70 05/11/2025 BMI 47.53 05/11/2025 Height 65.00 05/11/2025 Weight 285.60 05/11/2025 BSA 2.30 05/11/2025 Oxygen Saturation 97.00 05/11/2025 Respiratory Rate 16.00 05/11/2025 Heart Beat 90.00 05/11/2025 Body Temperature 98.00 05/11/2025 Pain Scale 0.00 05/12/2025 Pain Scale 0.00 05/12/2025 Height 65.00 [...] 06/02/2025 Intravascular Diastolic 63 Notes Section * SENIOR SAFETY SUPPORT MANAGER Follow-Up GYNECOLOGIC ONCOLOGY FOLLOW-UP VISIT Patient Name: NGOC GREEN : 1960 Date of Visit: 06/02/2025 Referring Provider: ? 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 Menarche: 12 years old? P2002 [...] symptoms of disease. (Date: 04/21/2025) Physical Exam (Developer Advisor Oncology): GENERAL: Pleasant, in no acute distress. [...] of body of uterus Assessment & Plan (Developer Advisor Oncology): Ngoc Green is a?64-year-old female, recently [...] Trejo APRN, CNP 06/02/2025 08:41 CDT * SENIOR SAFETY SUPPORT MANAGER Follow-Up GYNECOLOGIC ONCOLOGY FOLLOW-UP VISIT Patient Name: NGOC GREEN : 1960 Date of Visit: 05/11/2025 Referring Provider: ? 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 05/12/25: C2 Carbo/taxol? Genetic Testing (Developer Advisor Oncology): MMRp Interval History (Developer Advisor Oncology) She?is here?for?chemotherapy surveillance a day early. 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 Menarche: 12 years old? P2002 [...] symptoms of disease. (Date: 04/21/2025) Physical Exam (Developer Advisor Oncology): GENERAL: Pleasant, in no acute distress. [...] of body of uterus Assessment & Plan (Developer Advisor Oncology): Ngoc Green is a?64-year-old female, recently [...] and booties. ?She has ordered these from [email or web address]?and will bring them tomorrow for treatment.? If [...] Trejo APRN, CNP 05/11/2025 14:54 CDT * SENIOR SAFETY SUPPORT MANAGER Follow-Up GYNECOLOGIC ONCOLOGY FOLLOW-UP VISIT Patient Name: NGOC GREEN : 1960 Date of Visit: 05/02/2025 Referring Provider: ? 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 Menarche: 12 years old? P2002 [...] symptoms of disease. (Date: 04/21/2025) Physical Exam (Developer Advisor Oncology): GENERAL: Pleasant, in no acute distress. [...] % 5.4 2.5 IG % 0.0 0.3 Lusi Angel # (ANC) x 10^3/uL 0.8 (L) [...] of body of uterus Assessment & Plan (Developer Advisor Oncology): Ngoc Green is a?64-year-old female, recently [...] and booties. ?She has ordered these from [email or web address].? We discussed?freezing them the night before, and [...] Trejo APRN, CNP 05/02/2025 12:07 CDT * SENIOR SAFETY SUPPORT MANAGER Follow-Up GYNECOLOGIC ONCOLOGY FOLLOW-UP VISIT Patient Name: NGOC GREEN : 1960 Date of Visit: 04/21/2025 Referring Provider: ? 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 Menarche: 12 years old? P2002 [...] BSA: 2.3, BMI: 47.33 kg/m2 Physical Exam (Developer Advisor Oncology): GENERAL: Pleasant, in no acute distress. [...] of body of uterus Assessment & Plan (Developer Advisor Oncology): Ngoc Green is a?64-year-old [facility] She is [...] Mai APRN, CNP 04/21/2025 09:04 CDT * SENIOR SAFETY SUPPORT MANAGER Follow-Up GYNECOLOGIC ONCOLOGY FOLLOW-UP VISIT Patient Name: NGOC GREEN : 1960 Date of Visit: 04/07/2025 Referring Provider: ? 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 Menarche: 12 years old? P2002 [...] kg/m2 Performance Status ECOG/Karnofsky ? 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 Primary GYNOncologist: Jana Barnett (Gynecological/Oncology) Date of Service: 03/03/2025 Reason for Consult: Serous endometrial cancer? 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 Past Medical History: Hypertension Surgical History: Knee replacement - bilateral? 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 Menarche: 12 years old? P2002 [...] BSA: 2.3, BMI: 47.46 kg/m2 Physical Exam (Developer Advisor Oncology): General: appears well and in no [...] of body of uterus Assessment & Plan (Developer Advisor Oncology): Ngoc Green is a?64-year-old female [facility] cancer I reviewed [...] Jana Barnett MD ? Gynecologic Oncology - [facility]? Pain Care Management: Pain Scale: 0 Patient Care needs: Depressions Status: Not recorded on visit Smoking Status: Smoking Tobacco : Never smoker; Smokeless Tobacco : Never used smokeless tobacco; Vaping : Never vaped Jana Barnett MD Copy to: Reina YA ? Electronically signed by Jana Barnett MD 03/03/2025 14:05 CDT
--- OUTSIDE RECORDS SUMMARY | 2025-06-19 18:00 | XMS_ITS ---
Author Name Interface, [id number] lity Address [address] [place] [address] Oncology Address [address] [place] [address] Allergies and Adverse Reactions Plan Reason for Visit Encounters Diagnostic Results Medications Problems Vital Signs Notes Section
[2025-06-19 18:06] LABS: Hematocrit* 31.1 % (33.0-51.0); Hemoglobin* 10.4 gm/dL (12.0-16.0); Immature Granulocytes Abs Auto 0.09 K/uL (0.00-0.30); Immature Granulocytes Pct Auto 1.1 %; Mean Corpuscular HGB Conc 33 gm/dL (32-36); Mean Corpuscular Hemoglobin 30 pg (26-34); Mean Corpuscular Volume 90 fL (80-100); RDW Coefficient of Variation % 15.6 % (11.5-15.5); Red Blood Count* 3.46 m/uL (4.00-5.20); White Blood Count* 8.25 K/uL (4.50-11.00)
[2025-06-19 18:11] LABS: Lymphocytes Absolute Auto 1.40 K/uL (0.90-2.90); Slide Review Reflex No
[2025-06-19 18:34] LABS: Chloride* 105 mmol/L (96-114)
[2025-06-19 18:35] LABS: Potassium* 4.3 mmol/L (3.6-5.1); Sodium* 141 mmol/L (135-149)
[2025-06-19 18:37] LABS: Blood Urea Nitrogen* 23 mg/dL (7-30); Creatinine* 0.9 mg/dL (0.5-1.5); Est. Creatinine Clearance* 50.47; Estimated Glomerular Filt Rate 71 ml/min
[2025-06-19 18:38] LABS: Anion Gap 10 mEq/L (7-15); Calcium* 9.8 mg/dL (8.4-10.6); Carbon Dioxide* 26 mmol/L (20-32); Glucose* 142 mg/dL (60-115)
[2025-06-19 18:50] LABS: Creatinine, Point-of-Care* 1.0 mg/dl (0.6-1.3)
[2025-06-19] MEDS: APIXABAN 5 MG TABLET PO (19:41)
== END 2025-06-19 19:45 | disposition home or self-care (01) ==
PROVIDERS: Emergency Provider Student in an Organized Health Care Education/Training Program; PCP Physician Assistant Medical
DX: I82.402 Acute embolism and thrombosis of unspecified deep veins of left lower extremity (principal); R00.0 Tachycardia, unspecified; C54.1 Malignant neoplasm of endometrium; Z79.60 Long term (current) use of unspecified immunomodulators and immunosuppressants
CPT/HCPCS: 36415; 71275; 74174; 80048; 82565; 85025; 99283; 99284; 99285; A9270; Q9967